=== PATIENT | female | born 1955 | race Caucasian/White ===

== ENCOUNTER 2016-06-29 10:35 | Inpatient (IN) ==
--- NOTE | 2016-06-29 10:50 | Anesthesia Evaluation PreOp ---
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 History: Denies Any Significant HX Other Medical History: Renal (Stones), Diabetes Type II, GERD (Hiatal hernia), Other (Glaucoma) Anesthesia History: Past Anesthesia (Blader sx, Hernia Repair, GB, SALVADOR, Colonoscopy), Problems (PONV) : No Alcohol Use: rarely Drug use: none Medications and Allergies Amoxicillin 875 mg PO BID #20 tablet 01/26/15 [Rx] PredniSONE [Prednisone] 40 mg PO DAILY #10 tablet 01/26/15 [Rx] Hydrocodone/Acetaminophen [Ruth 5-325 Tablet] 1 tab PO Q6H PRN #7 tab 08/03/15 [Rx] Promethazine [Phenergan] 12.5 mg PO Q6HR #7 tablet 08/03/15 [Rx] Allergies Minocycline [From Minocin] Allergy (Verified 01/26/15 21:06) Rash - Meds/Allergy Pre-op Review Medications Reviewed: Yes Allergies Reviewed: Yes Beta Blockers on Current Med List: No Anesthesia Results - Labs Laboratory Tests 06/27/14 04/06/15 04/14/16 09:40 12:36 09:10 WBC Hgb Hct Plt Count Sodium 142 Potassium Chloride 104 Carbon Dioxide 26 BUN 12 Creatinine 0.83 06/22/16 06/22/16 08:45 08:45 WBC 11.2 H Hgb 13.3 Hct 40.4 Plt Count 292 Sodium Potassium 3.4 L Chloride Carbon Dioxide BUN Creatinine - Imaging EKG: image reviewed (SR, IVCD, poss LVH) Anesthesia Exam O2 Sat Height 1.6 m Height 1.6 m Weight 140.614 kg Weight 140.614 kg O2 Sat by Pulse Oximetry 91 Vital Signs Temp Pulse Resp BP Pulse Ox 98.3 F 97 18 127/85 91 L 06/29/16 11:17 06/29/16 11:17 06/29/16 11:17 06/29/16 11:17 06/29/16 11:17 Height: 5'3'' Weight: 310# NPO (# of Hours): > 8 hrs Pain Scale: 0 Pain Scale Used: Numeric (1 - 10) - HEENT Pupil (Motor): Pupils equal, EOMI Mallampati: III Teeth: Normal Oral Opening: Greater than 3 - ADULT SERVICES LIBRARIAN LOC: Oriented ADULT SERVICES LIBRARIAN Motor: Normal RUE, Normal LUE, Normal RLE, Normal LLE, Normal Face ADULT SERVICES LIBRARIAN Sensory: Normal: RUE, LUE, RLE, LLE, Face - Cardiac Rhythm: Regular Murmur: None JVD: No Carotid Bruit: No - Pulmonary Breath Sounds: bilateral Clear Respiratory Effort: Symmetrical Anesthesia Assess/Plan ASA Score: 4 Modified Alana Scale for Level of Consciousness: Cooperative, oriented, and tranquil Anesthetic Plan: General Autologous Blood: Yes Monitoring Plan: Standard Monitors Recovery Plan: PACU
[2016-06-29] MEDS ORDERED: CeFAZolin Pre 3,000 MG/100 ML 3,000 MG/100 ML BAG IVPB ONE (11:31)
[2016-06-29] MEDS ORDERED: *HR* Midazolam HCl 2 MG/2 ML VIAL ONE (11:34)
[2016-06-29] MEDS ORDERED: *HR* FentaNYL (PF) 100 MCG/2 ML VIAL ONE ×2 (11:34→13:04)
[2016-06-29] MEDS ORDERED: Lidocaine -MPF 2% 2 ML VIAL ONE (11:34)
[2016-06-29] MEDS ORDERED: *HR* Propofol 200 MG/20 ML VIAL IVP ONE ×2 (11:34→13:38)
[2016-06-29] MEDS ORDERED: *HR* Rocuronium Bromide 50 MG/5 ML VIAL ONE (11:35)
[2016-06-29] MEDS ORDERED: Lidocaine -MPF 4% 5 ML AMPUL ONE (11:37)
[2016-06-29] MEDS ORDERED: Ringers Solution, Lactated 1,000 ML IVC SCH ×2 (11:45→17:04)
--- NOTE | 2016-06-29 11:46 | History & Physical Report ---
Date of Encounter: 06/29/16 Time of Encounter: 11:45 24 Hour HP Update - Instructions Instructions: If the History and Physical is less than 30 days old and was completed prior to A.M. admission and or procedure and has NOT been updated on calendar day of procedure please complete this update prior to performing procedure. - Update Patient reports changes in Medical Condition: No Changes in assessment/condition: No Changes in Medication: No Preop tests/diagnostics Reviewed: Yes Surgery Remains Indicated: Yes Consent for Planned Operative Procedure(s) Verified: Yes - Pre-Operative Checklist Preoperative Checklist Indicated: Yes Prophylactic Antibiotic Ordered: Yes Home Medications Include Beta Vladimir: No Beta Vladimir Taken Today (Day of Surgery): No Beta Vladimir Taken Yesterday (Day Prior to Surgery): No Is VTE Prophylaxis Indicated?: Yes
[2016-06-29] MEDS ORDERED: Bupivacaine/EPI 1:200k 0.5%PF 30 ML VIAL ONE (11:53)
[2016-06-29] MEDS ORDERED: Lidocaine/EPI 1:100k 1% 20 ML VIAL ONE ×2 (11:54→14:14)
[2016-06-29] MEDS ORDERED: *HR* HYDROmorphone (PF) 1 MG/ML SYRINGE IVP PRN (13:06)
[2016-06-29] MEDS ORDERED: Dexamethasone 4 MG/ML VIAL ONE (13:42)
[2016-06-29] MEDS ORDERED: Ondansetron 4 MG/2 ML VIAL ONE ×2 (13:42→15:36)
[2016-06-29] MEDS ORDERED: Neostigmine Methylsulfate 3 MG/3 ML SYRINGE ONE (13:44)
[2016-06-29] MEDS ORDERED: *HR* HYDROmorphone 2 MG/ML SYRINGE ONE (14:10)
[2016-06-29] MEDS ORDERED: Ondansetron 4 MG/2 ML VIAL IVP PRN ×2 (15:33→17:04)
[2016-06-29] MEDS: *HR* Promethazine 25 MG/ML VIAL IVP PRN ×2 (15:44→16:05)
--- NOTE | 2016-06-29 16:15 | OB/GYN Procedure Note ---
OB-COOK [employer]LED [employer]AT: Procedure - Diagnosis Date of procedure: 06/29/16 Pre-op diagnosis: symptomatic pelvic prolapse, ABBI Post-op diagnosis: other (Third-degree rectocele and minimal cystocele and good apical support) - Procedure Procedure: Rectocele repair, tension-free vaginal taping, cystoscopy Surgeon: Kamari Hatfield Energy Project Manager: Jemma Tejeda Anesthesia Type: General Estimated blood loss (cc): 50 Fluids: crystalloid Procedure Complications: None Specimens collected: None Disposition: PACU Findings: Minimal cystocele good apical support third-degree rectocele, normal bladder Narrative: Patient is a 61-year-old female symptomatic pelvic prolapse who had been seen in the office for these complaints. She states the pressure symptoms are quite disabling make it quite difficult to work. She also plans pressure and incontinence. She previously had hysterectomy by myself in combination with hernia repair with Dr. Smiley and bladder suspension by Dr. Childress. She had since had a recurrent ventral hernia vertical incision with repair and Swift. In office I felt patient had significant cystocele and rectocele and likely needed sacrocolpopexy which was going to be performed because of her prior hernia repair. Saurav going to do tension-free vaginal taping. Then when patient was relaxed she had very minimal cystocele and excellent apical support. She did have a very significant rectocele. At this point I really did not feel that she needed a colpopexy and felt that the risks of bowel or mass injury would be much higher than the possible benefits. It was my belief that she would benefit most from rectocele repair and tension-free vaginal taping. I did break scrub and spoke with her older sister and her daughter Alicia. They agreed with my feelings that if at all possible she would prefer not to have the more extensive surgery and stated she had expressed concern about possible damage to the mesh and also about chronic back pain. At this point decision was made to proceed with rectocele repair and TVT and cystoscopy. Description procedure: Patient was taken up running where general anesthesia was administered she was prepped and draped in usual sterile fashion. Exam under anesthesia revealed third degree rectocele really minimal cystocele and excellent apical support. As above decision was made to proceed with rectocele repair and TVT and cystoscopy and to not perform the sacrocolpopexy. Bladder was drained of clear urine and 3 mL dilute local were injected behind the symphysis pubis in the left and the right. 2 small incisions were then made. The catheter was in place with a Larson guide. The mid urethral portion anterior vaginal wall was noted and injected below the submucosa just behind the symphysis pubis on the left and right. 30 mL was used on each side. Small incision was made in the midline just at the mid urethral portion anterior vaginal wall. Metzenbaum scissors were used to tunnel up under the symphysis pubis on each side. The Larson guide in place the patient was placed in Trendelenburg position and the bladder was maneuvered towards the patient's left. With my left hand in the vagina I passed the TVT needle through the incision along the anterior vaginal wall and hugging very near the symphysis pubis at 100 symphysis and straight up and out through the right lower quadrant incision. In similar fashion and position the patient's bladder towards her right side with left gloved hand in the vagina and reflect the bladder towards her right side. TVT needle was then passed through the suburethral incision. The subscapularis was brought to behind the symphysis pubis and also lower abdominal incision. The needles were grasped with Meghna clamps catheters removed and cystoscopy was performed. There is no hematuria and no evidence of bladder trauma. Both ureters were identified with strong ureteral jets. At this point the catheter was then placed 9 Hegar dilator was used to gently pull the TVT mesh up loosely behind the 9 Hegar dilator sheaths were then removed. The TVT mesh was cut to size and anterior vaginal wall was closed. The skin edges were reapproximated with skin glue. At this point I grasped the posterior vaginal vargas at the introitus with Meghna clamps and injected the posterior vaginal fourchette with 1% lidocaine with epinephrine. A samir-shaped incision was made. I injected along the posterior vaginal 1% lidocaine with epinephrine. I then undermined vaginal mucosa and gently and sharply dissected off the rectovaginal fascia on each side. I extended the posterior vaginal incision up to the vaginal cuff. I then gently continued to grasp the vaginal tissue with Meghna clamps which assisted me in dissecting down to the rectovaginal fascia on each side once the rectovaginal fascia was identified to the large enterocele was noted using 2-0 Vicryl pursestring stitch was taken along the edge of the enterocele. The macula. I reduced the enterocele and snugged down the pursestring stitch over the enterocele was reduced. I then ran the whole posterior vaginal wall with interrupted 2-0 Vicryl reapproximated the left-sided rectovaginal fascia to the right-sided rectovaginal fascia. Once the ring the entire procedure vagina I then transected the extravaginal mucosa. The vaginal mucosa was reapproximated with 3-0 Vicryl along the entire suture vaginal wall. I did use 2-0 Vicryl to build up the posterior fourchette at the introitus and then reapproximated the rest of the skin with 3-0 Vicryl. A 2 inch iodoform packing was placed. All sponge and instrument counts were correct patient was awakened taken to recovery in good condition..
--- NOTE | 2016-06-29 16:21 | Anesthesia Evaluation Post Op ---
Date of Encounter: 06/29/16 Time of Encounter: 16:20 - Vital Signs Vital Signs: Vital Signs/O2 Sat/Glucose, Most Current Temp Pulse Resp BP Pulse Ox 06/29/16 16:15 98.4 F 98 18 135/80 90 L 06/29/16 16:05 104 18 153/73 92 L 06/29/16 15:55 99 18 148/77 91 L 06/29/16 15:45 98.4 F 106 18 141/83 91 L 06/29/16 15:35 107 18 131/76 95 06/29/16 15:25 108 18 152/79 96 06/29/16 15:15 98.7 F 112 18 152/81 99 - Lungs Lungs: Clear Ascult./Percussion - Airway Airway: Non-obstructed - Cardiovascular Regular Rate - Mental Status Mental Status: Alert & Oriented, Answers Appropriately - Pain Pain Scale: 2 - Nausea Vomiting Nausea Vomiting: Not Present - Hydration Hydration: NPO - Discharge PostOp Status: Transfer Patient to floor
[2016-06-29] MEDS ORDERED: Naloxone 0.4 MG/ML INJ IVP PRN (17:04)
[2016-06-29] MEDS ORDERED: VOLTAREN GEL TP PRN (17:04)
[2016-06-29] MEDS ORDERED: traMADol 50 MG TABLET PO PRN (17:04)
[2016-06-29] MEDS ORDERED: *HR* HYDROmorphone (PF) 1 MG/ML SYRINGE ONE (17:12)
[2016-06-29] MEDS: *HR* HYDROmorphone (PF) 1 MG/ML SYRINGE IVP PRN ×2 (17:23→21:50)
[2016-06-29] MEDS: *HR* OxyCODONE/APAP 5/325 TABLET PO PRN (20:41)
[2016-06-29] MEDS: Psyllium 1 PACKET POWD.PACK PO SCH (20:42)
[2016-06-29] MEDS ORDERED: DOVONEX TP SCH (21:00)
[2016-06-30] MEDS: *HR* OxyCODONE/APAP 5/325 TABLET PO PRN ×4 (00:45→12:32)
[2016-06-30] MEDS: Ondansetron ODT 4 MG TAB.RAPDIS SL PRN ×2 (01:00→10:59)
--- NOTE | 2016-06-30 07:39 | Discharge Summary ---
Date of Encounter: 07/04/16 Time of Encounter: 07:40 - Discharge Diagnosis (1) Pelvic prolapse Priority: Primary Status: Acute Comments: Pt doing well s/p rectocele repair and TVT. Will D/c bautista and try voiding trials. Qualifiers: Prolapse type: cystocele Cystocele location: midline Qualified Code(s): N81.11 - Cystocele, midline - Discharge Medications Prescriptions: OxyCODONE/APAP 5/325 [Percocet 5/325 MG] 1 each PO Q4HR PRN #40 tablet PRN Reason: post op pain Ibuprofen [Motrin] 600 mg PO Q6HR PRN #20 tab PRN Reason: post op pain Home Medications: Ascorbic Acid [Vitamin C] 250 mg PO DAILY 06/29/16 [History] Aspirin 81 mg PO DAILY 06/29/16 [History] Bimatoprost [Lumigan] 1 drop OP DAILY 06/29/16 [History] Calcipotriene [Dovonex] 1 appl TP BID 06/29/16 [History] Cholecalciferol (D-3) [Vitamin D] 5,000 unit PO DAILY 06/29/16 [History] Diclofenac Sodium [Voltaren] 1 appl TP QID PRN 06/29/16 [History] Esomeprazole Magnesium [Nexium] 40 mg PO DAILY 06/29/16 [History] Etanercept [Enbrel] 1 ml SQ QMONTH 06/29/16 [History] Famciclovir [Famvir] 1,000 mg PO BID 06/29/16 [History] Fluticasone Propionate Nasal [Flonase] 1 spray NS DAILY 06/29/16 [History] Folic Acid 1 mg PO DAILY 06/29/16 [History] Furosemide [Lasix] 20 mg PO DAILY 06/29/16 [History] Ketoconazole 2% CRM [Nizoral Cream] 1 appl TP DAILY 06/29/16 [History] Liraglutide [Victoza 2-Alexei] 1.8 mg SQ DAILY 06/29/16 [History] Metformin HCl [Metformin HCl ER] 500 mg PO BID 06/29/16 [History] Methotrexate [Otrexup] 20 mg PO QWEEK 06/29/16 [History] Mv-Mn/FA/Vit K/Lycop/Lut/Coq10 [Daily Multivitamin Capsule] 1 each PO DAILY 06/14 [History] [place]-3/Dha/Epa/Fish Oil [Fish Oil 1,000 mg Softgel] 1 each PO DAILY 06/29/16 [ History] Potassium Chloride [K-Tab ER] 20 meq PO DAILY 06/29/16 [History] PredniSONE 5 mg PO DAILY 06/29/16 [History] Rutin/Hesp/Bioflav/C/Herb#196 [Bioflex Tablet] 1 each PO DAILY 06/29/16 [History ] Spironolact/Hydrochlorothiazid [Aldactazide 25-25 Tablet] 1 each PO DAILY [History] Tramadol HCl [Ultram] 50 mg PO BID PRN 06/29/16 [History] Triamcinolone Acet 0.1% CRM [Kenalog] 1 appl TP DAILY 06/29/16 [History] Ibuprofen [Motrin] 600 mg PO Q6HR PRN #20 tab 06/30/16 [Rx] OxyCODONE/APAP 5/325 [Percocet 5/325 MG] 1 each PO Q4HR PRN #40 tablet 06/30/16 [Rx] Allergies/Adverse Reactions: Allergies Minocycline [From Minocin] Allergy (Verified 01/26/15 21:06) Rash Data Procedures and tests throughout hospitalization: Laboratory Tests 06/29/16 06/29/16 11:15 15:16 POC Glucose 116 H 124 H Labs on day of discharge: Labs from last 24 hours 06/29/16 06/29/16 15:16 11:15 POC Glucose 124 H 116 H - Impressions Doing well. + BM. Good pain control. Date of admission: 06/29/16 17:00 Primary care physician: Elijah Hernandez MD - Patient Status Disposition: Home, Self-Care Condition: Good Overall status at discharge: patient is progressing back to baseline - Discharge Instructions Additional Instructions: There are many types of gynecologic surgery. Below, you will find groups of instructions related to caring for yourself after your procedure. there may be instructions that do not apply to you depending on the procedure that you had. Before you go home, your nurse will explain these instructions and let you know any special instructions that you may have. MEDICATIONS: -Continue taking your home medications as prescribed by your doctor prior to surgery. You will be notified of any changes in home medications before leaving the hospital. -A prescription for pain medication may be given to you. Take it as directed. It is important to control your pain during recovery. -Do not stop taking antibiotics if they were prescribed for you. Take them until they are all gone. Antibiotics are sometimes used to prevent infection after surgery. BOWEL MOVEMENTS: -You may not have a bowel movement for a few days after surgery. The first one may be difficult to pass. Do not strain in order to go, and allow yourself plenty of time when going for the first time following your surgery. -To help soften your stool, eat a diet high in fiber. This includes foods such as cereals, whole grain breads and vegetables. You can also take a fiber supplement or stool softeners, which your provider may prescribe for you. DIET: -Your appetite may be decreased following surgery. You will be eating regular food before you are discharged from the hospital. Start out with small amounts of food and increase your meals as you are able to tolerate them without feeling nauseated. -Eat healthy foods to help you heal more quickly and increase your energy. Avoid foods that cause gas, as this will make you feel uncomfortable. -Drink 6-8 glasses of water each day. SMOKING: -Smoking increases your chances of post-surgical complications. It is never too late to quit. Ask your nurse or provider for information to help you quit smoking. ACTIVITY: -Restrict yourself to light activity and increase your activity level slowly, resting frequently. -Be aware your pain medication may cause drowsiness. -It usually takes 4-8 weeks for the body to heal. -You may walk slowly. Limit stair climbing. Do not exercise until the provider tells you it is safe to do so. -No douching, tampons or sex for 6 weeks. This will allow time for healing. You can no longer get after having a hysterectomy but will still need to protect yourself from sexually transmitted diseases. -Lift nothing heavier than 10-15 pounds for 2 weeks. -You can drive in about 2 weeks, unless otherwise instructed by your provider. -You can expect to return to work or school and other normal activities in about 6 weeks or as directed by your provider. -When you get home, you may shower normally. If you have an incision, wash the area with soap and water and dry thoroughly after showering. You may have steri -strips (thin strips of tape used to help hold the incision together while it heals). If these are present, do not remove them. Keep the area of your incision clean and dry. STRESS AND MOOD -A hysterectomy may change the way that you view yourself. These are normal feelings. Talk to your family and health care provider about these feelings. If you feel depressed, seek counseling or talk to your provider about treatment options. It is important in the healing process to have a healthy mind. WHEN TO CALL THE DOCTOR: -If your stitches are swollen, red or have drainage coming from them or if you notice them coming apart. It is normal for your incision to feel numb up to a year. -If you are having chills, fever or a reaction to your medicine. -If your incision is bleeding or you have increased pain in your incision. -If within an hour you have soaked a sanitary pad with vaginal bleeding. -If you are unable to urinate or it has been 4-6 hours since you have urinated. Also, if you have burning with urination or feel like you cant completely empty your bladder; call your provider for further instructions. -If you have a smelly discharge coming from your incision or vagina. -If you have any questions about your surgery or medications. If you have difficulty breathing, chest pain, uncontrolled bleeding or any other emergency, call 911 or report to the nearest emergency department immediately. - Diet and Activity Activity: increase activity as tolerated Diet: advance to your usual diet Hospital Course RESISTOR WINDER Time Attestation: Total time spent providing and/or coordinating discharge services: Exam - Constitutional Vitals: Temp Pulse Resp BP Pulse Ox 98.3 F 70 16 124/75 97 06/30/16 04:55 06/30/16 04:55 06/30/16 04:55 06/30/16 04:55 06/30/16 04:55 General appearance IM: A&O X 3 - Respiratory Respiratory exam: Present: CTAB - Cardiovascular Cardiovascular exam IM: Present: RRR - GI/Abdominal GI/Abdominal exam IM: normal bowel sounds Incision: normal - Extremities Exam Extremities exam IM: Present: full ROM - Neurological Exam Neurological exam: oriented X3 - VTE Documentation of Mechanical Device: Intermittent pneumatic compression device
[2016-06-30] MEDS ORDERED: *HR* Metformin 500 MG TABLET PO SCH ×2 (08:00→17:00)
[2016-06-30 08:39] VITALS: BP 98/63
[2016-06-30] MEDS ORDERED: VICTOZA SQ SCH (09:00)
[2016-06-30] MEDS ORDERED: HCTZ PO SCH (09:00)
[2016-06-30] MEDS ORDERED: predniSONE 5 MG TABLET PO SCH (09:00)
[2016-06-30] MEDS ORDERED: SPIRONOLACTONE PO SCH (09:00)
[2016-06-30] MEDS ORDERED: Ketoconazole 2% CRM 15 GM TUBE TP SCH (09:00)
[2016-06-30] MEDS ORDERED: Fluticasone Propionate Nasal 50 MCG/SPRAY BOTTLE NS SCH (09:00)
[2016-06-30] MEDS ORDERED: LUMIGAN OPTH OP SCH (09:00)
[2016-06-30] MEDS ORDERED: Furosemide 20 MG TABLET PO SCH (09:00)
[2016-06-30] MEDS ORDERED: Ibuprofen 800 MG TABLET PO PRN (09:10)
[2016-06-30] MEDS: Psyllium 1 PACKET POWD.PACK PO SCH (10:01)
== END 2016-06-30 12:45 | disposition home or self-care (01) | DRG 748 ==
LOC: SAMDAY 10:35 → 1NENUOBS 17:00
PROVIDERS: ADMIT Obstetrics & Gynecology; ATTEND Obstetrics & Gynecology

== ENCOUNTER 2017-01-15 13:36 | Inpatient (IN) ==
[2017-01-15] MEDS ORDERED: Ondansetron 4 MG/2 ML VIAL IVP ONE ×3 (14:01→17:12)
[2017-01-15 14:05] LABS: Basophils # 0.1 K/mcL (0.0-0.2); Basophils % 0.4 %; Eosinophils # 0.1 K/mcL (0.0-0.6); Eosinophils % 0.7 %; Hematocrit 40.6 % (35.3-44.9); Immature Granulocytes % 0.7 % (0-4); Lymphocytes # 4.5 K/mcL (0.6-4.6); Lymphocytes % 27.4 %; Mean Corpuscular Volume 96.7 fL (83.0-100.0); Mean Platelet Volume 10.6 fL (9.4-12.4); Monocytes # 1.2 K/mcL (0.0-1.3); Monocytes % 7.1 %; Neutrophils # 10.5 K/mcL (1.6-8.9); Platelet Count 282 K/mcL (140-400); Red Cell Distribution Width 14.6 % (11.5-14.5); Segmented Neutrophils % 63.7 %
[2017-01-15 14:16] LABS: Alanine Aminotransferase 30 Units/L (0-55); Albumin 3.3 g/dL (3.5-5.0); Albumin/Globulin Ratio 0.8 (1.1-2.2); Alkaline Phosphatase 59 Units/L (38-126); Aspartate Amino Transferase 20 Units/L (5-34); BUN/Creatinine Ratio 15 (6-26); Bilirubin,Direct 0.2 mg/dL (0.0-0.5); Bilirubin,Indirect 0.3 mg/dL (0.0-1.2); Bilirubin,Total 0.5 mg/dL (0.2-1.2); Blood Urea Nitrogen 12 mg/dL (7-20); Calcium 9.3 mg/dL (8.6-10.8); Carbon Dioxide 27 mEq/L (19-29); Chloride 101 mEq/L (98-109); Glucose 167 mg/dL (70-99); Lipase 38 Units/L (8-78); Osmolality,Calculated 292 (280-300); Potassium 3.2 mEq/L (3.5-4.5); Sodium 139 mEq/L (136-145); Total Protein 7.3 g/dL (6.0-8.3); eGFR For African Americans > 60 (> 60); eGFR For Non-African Americans > 60 (> 60)
[2017-01-15 14:29] LABS: Bilirubin,Urine Negative (Negative); Blood,Urine Trace (Negative); Clarity,Urine Cloudy (Clear); Color,Urine Yellow (Yellow); Glucose,Urine (UA) Normal (Normal); Ketones,Urine Negative (Negative); Leukocyte Esterase,Urine Trace (Negative); Nitrite,Urine Negative (Negative); PH,Urine 6.5 pH Units (5.0-8.0); Protein,Urine Negative (Neg-Trace); Urobilinogen,Urine Normal (Normal)
[2017-01-15 14:42] LABS: RBC,Urine 0-3 per hpf (0-3); Squamous Epithelial Cell,Urine Few per lpf (None-Few)
[2017-01-15 14:43] LABS: Bacteria,Urine Few per hpf (None-Few); Hyaline Casts,Urine None Seen per lpf (None-Few)
[2017-01-15] MEDS ORDERED: *HR* HYDROmorphone (PF) 1 MG/ML SYRINGE IVP ONE ×2 (15:04→17:03)
[2017-01-15] MEDS ORDERED: Ondansetron 4 MG/2 ML VIAL ONE (15:14)
[2017-01-15] MEDS ORDERED: metroNIDAZOLE 500 MG TABLET PO ONE (17:05)
--- NOTE | 2017-01-15 17:05 | Emergency Department Note ---
Disposition Clinical Impression: Diverticulitis Qualifiers: Diverticulitis site: large intestine Diverticulitis bleeding: without bleeding Diverticulitis complication: without perforation or abscess Qualified Code(s): K57.32 - Diverticulitis of large intestine without perforation or abscess without bleeding Disposition: Admitted As Inpatient Condition: Good Prescriptions: Ondansetron HCl [Zofran] 4 mg PO Q6HR #15 tablet Ciprofloxacin HCl [Cipro] 500 mg PO BID #28 tablet HYDROcodone/Acet 5/325 mg [[place] 5-325 mg] 1 tab PO Q6H PRN #15 tab PRN Reason: Pain metroNIDAZOLE [Flagyl] 500 mg PO BID #28 tablet Forms: Work/School Release, ED Satisfaction Letter General Adult HPI - General Chief complaint: ED Abdominal Pain Stated complaint: LLQ pain Time Seen by Provider: 01/15/17 14:22 Source: patient Limitations: no limitations Nursing Notes Reviewed: Yes Vital Signs Reviewed: Yes - History of Present Illness HPI Narrative: Patient presenting with poor evaluation of left-sided abdominal pain. Patient states she has had symptoms for approximately 2 days. Progressive in nature. Patient describes tenderness as well as sensitivity driving over bumps or walking. Associated nausea. Decreased appetite. Mild objective fever and chills. Patient has a history of diverticulosis but has never had diverticulitis. She has a history of right-sided abdominal pain with swelling of the lymph nodes that is chronic in nature. This is different from previous. She describes to bowel movements with dark stools. Pain Scale: 8 - Related Data Home Medications Medication Instructions Recorded Confirmed Ascorbic Acid [Vitamin C] 250 mg PO DAILY 06/29/16 06/29/16 Aspirin 81 mg PO DAILY 06/29/16 06/29/16 Bimatoprost [Lumigan] 1 drop OP DAILY 06/29/16 06/29/16 Calcipotriene [Dovonex] 1 appl TP BID 06/29/16 06/29/16 Cholecalciferol (D-3) [Vitamin D] 5,000 unit PO DAILY 06/29/16 06/29/16 Diclofenac Sodium [Voltaren] 1 appl TP QID PRN 06/29/16 06/29/16 Esomeprazole Magnesium [Nexium] 40 mg PO DAILY 06/29/16 06/29/16 Etanercept [Enbrel] 1 ml SQ QMONTH 06/29/16 06/29/16 Famciclovir [Famvir] 1,000 mg PO BID 06/29/16 06/29/16 Fluticasone Propionate Nasal 1 spray NS DAILY 06/29/16 06/29/16 [Flonase] Folic Acid 1 mg PO DAILY 06/29/16 06/29/16 Furosemide [Lasix] 20 mg PO DAILY 06/29/16 06/29/16 Ketoconazole 2% CRM [Nizoral Cream] 1 appl TP DAILY 06/29/16 06/29/16 Liraglutide [Victoza 2-Alexei] 1.8 mg SQ DAILY 06/29/16 06/29/16 Metformin HCl [Metformin HCl ER] 500 mg PO BID 06/29/16 06/29/16 Methotrexate [Otrexup] 20 mg PO QWEEK 06/29/16 06/29/16 Mv-Mn/FA/Vit K/Lycop/Lut/Coq10 1 each PO DAILY 06/29/16 06/29/16 [Daily Multivitamin Capsule] [place]-3/Dha/Epa/Fish Oil [Fish Oil 1 each PO DAILY 06/29/16 06/29/16 1,000 mg Softgel] Potassium Chloride [K-Tab ER] 20 meq PO DAILY 06/29/16 06/29/16 [place]/Hesp/Bioflav/C/Herb#196 1 each PO DAILY 06/29/16 06/29/16 [Bioflex Tablet] Spironolact/Hydrochlorothiazid 1 each PO DAILY 06/29/16 06/29/16 [Aldactazide 25-25 Tablet] Tramadol HCl [Ultram] 50 mg PO BID PRN 06/29/16 06/29/16 Triamcinolone Acet 0.1% CRM 1 appl TP DAILY 06/29/16 06/29/16 [Kenalog] predniSONE [PredniSONE] 5 mg PO DAILY 06/29/16 06/29/16 Previous Rx's Medication Instructions Recorded Ibuprofen [Motrin] 600 mg PO Q6HR PRN #20 tab 06/30/16 OxyCODONE/APAP 5/325 [Percocet 1 each PO Q4HR PRN #40 tablet 06/30/16 5/325 MG] Ciprofloxacin HCl [Cipro] 500 mg PO BID #28 tablet 01/15/17 HYDROcodone/Acet 5/325 mg [[place] 1 tab PO Q6H PRN #15 tab 01/15/17 5-325 mg] Ondansetron HCl [Zofran] 4 mg PO Q6HR #15 tablet 01/15/17 metroNIDAZOLE [Flagyl] 500 mg PO BID #28 tablet 01/15/17 Allergies Allergy/AdvReac Type Severity Reaction Status Date / Time Minocycline [From Minocin] Allergy Rash Verified 01/15/17 13:38 Review of Systems: CONSTITUTIONAL: No weight loss, fever, chills, weakness or fatigue. HEENT: Eyes: No visual changes. Ears, Nose, Throat: No hearing loss, difficulty talking or unable to swallow. SKIN: No rash or itching. CARDIOVASCULAR: No chest pain, chest pressure or chest discomfort. No palpitations or edema. RESPIRATORY: No shortness of breath, cough or sputum. GASTROINTESTINAL: Abdominal pain and nausea GENITOURINARY: No burning on urination or hematuria. NEUROLOGICAL: No headache, dizziness, syncope, paralysis, ataxia, numbness or tingling in the extremities. No change in bowel or bladder control. MUSCULOSKELETAL: No muscle pain, back pain, joint pain or stiffness. Past Medical History - Past Medical History Medical history: Reports: diabetes, kidney stones, other Surgical history: Reports: other Psychiatric history: Reports: no psych history - Social History Smoking Status: Never smoker Smokeless Tobacco Status: No Alcohol use: Reports: none Drug use: Reports: none Physical Exam General appearance: NAD, conversant Eyes: anicteric sclerae, moist conjunctivae; PERRL HENT: Atraumatic; oropharynx clear with moist mucous membranes and no mucosal ulcerations Neck: Normal inspection; Trachea midline; FROM, supple Lungs: CTA, with normal respiratory effort and no intercostal retractions CV: RRR, no MRGs Abdomen: Left-sided abdominal tenderness with rebound and guarding Extremities: No peripheral edema or extremity lymphadenopathy Skin: Normal temperature; no rash, ulcers or lesions Psych: Appropriate mood and affect Neuro: alert and oriented to person, place and time - General Limitations: no limitations General appearance: alert, in no apparent distress Course - Reevaluation(s) Reevaluation #1: Patient requesting more pain medication. Pain medication ordered Reevaluation #2: Patient requesting more pain medication. Pain medication ordered Reevaluation #3: Patient was given by mouth challenge including oral Cipro and Flagyl. Patient unable to tolerate as it has made her feel very sick to her stomach. Patient is requesting Phenergan. - Consultations Consultation #1: Discussed with the hospitalist. Patient accepted for admission. Vital Signs Temperature 98.0 F 01/15/17 13:38 Pulse Rate 95 01/15/17 13:38 Respiratory Rate 18 01/15/17 13:38 Blood Pressure 155/98 01/15/17 13:38 O2 Sat by Pulse Oximetry 95 01/15/17 13:38 Temperature 98.0 F 01/15/17 13:38 Pulse Rate 91 01/15/17 17:00 Respiratory Rate 16 01/15/17 17:00 Blood Pressure 128/73 01/15/17 17:00 O2 Sat by Pulse Oximetry 96 01/15/17 17:00 Oxygen Delivery Oxygen Delivery Room Air Medical Decision Making - Lab Data Result diagrams: 01/15/17 13:56 01/15/17 13:56 Lab Results 01/15/17 01/15/17 01/15/17 Range/Units 13:56 13:56 14:20 WBC 16.5 H (4.3-11.1) K/mcL RBC 4.20 (3.82-4.97) M/mcL Hgb 13.0 (11.5-15.4) g/dL Hct 40.6 (35.3-44.9) % MCV 96.7 (83.0-100.0) fL MCH 31.0 (28.0-33.3) pg MCHC 32.0 (31.6-35.5) g/dL RDW 14.6 H (11.5-14.5) % Plt Count 282 (140-400) K/mcL MPV 10.6 (9.4-12.4) fL Immature Gran % 0.7 (0-4) % Seg Neutrophils % 63.7 % Lymphocytes % 27.4 % Monocytes % 7.1 % Eosinophils % 0.7 % Basophils % 0.4 % Neutrophils # 10.5 H (1.6-8.9) K/mcL Lymphocytes # 4.5 (0.6-4.6) K/mcL Monocytes # 1.2 (0.0-1.3) K/mcL Eosinophils # 0.1 (0.0-0.6) K/mcL Basophils # 0.1 (0.0-0.2) K/mcL Sodium 139 (136-145) mEq/L Potassium 3.2 L (3.5-4.5) mEq/L Chloride 101 (98-109) mEq/L Carbon Dioxide 27 (19-29) mEq/L BUN 12 (7-20) mg/dL Creatinine 0.82 (0.57-1.11) mg/dL Est GFR ( Amer) > 60 (> 60) Est GFR (Non-Af Amer) > 60 (> 60) BUN/Creatinine Ratio 15 (6-26) Glucose 167 H (70-99) mg/dL Calculated Osmolality 292 (280-300) Calcium 9.3 (8.6-10.8) mg/dL Total Bilirubin 0.5 (0.2-1.2) mg/dL Direct Bilirubin 0.2 (0.0-0.5) mg/dL Indirect Bilirubin 0.3 (0.0-1.2) mg/dL AST 20 (5-34) Units/L ALT 30 (0-55) Units/L Alkaline Phosphatase 59 (38-126) Units/L Serum Total Protein 7.3 (6.0-8.3) g/dL Albumin 3.3 L (3.5-5.0) g/dL Globulin 4.0 H (2.4-3.5) g/dL Albumin/Globulin Ratio 0.8 L (1.1-2.2) Lipase 38 (8-78) Units/L Urine Color Yellow (Yellow) Urine Clarity Cloudy A (Clear) Urine pH 6.5 (5.0-8.0) pH Units Ur Specific [place] 1.010 (1.010-1.025) Urine Protein Negative (Neg-Trace) mg/dL Urine Glucose (UA) Normal (Normal) mg/dL Urine Ketones Negative (Negative) mg/dL Urine Blood Trace H (Negative) Urine Nitrite Negative (Negative) Urine Bilirubin Negative (Negative) Urine Urobilinogen Normal (Normal) mg/dL Ur Leukocyte Esterase Trace H (Negative) Urine Microscopic RBC 0-3 (0-3) per hpf Urine Microscopic WBC 3-5 H (0-3) per hpf Ur Squamous Epith Cells Few (None-Few) per lpf Urine Bacteria Few (None-Few) per hpf Hyaline Casts None Seen (None-Few) per lpf Ur Culture Indicated? YES A (NO) Attestation Statement - Attestation Attestation: Patient was seen with resident physician. I reviewed the history, physical, assessment and plan, and agree with the findings. I also personally evaluated this patient and had [id number] time with this patient. 61-year-old female presents to the emergency department with a chief complaint of left lower abdominal pain. Patient states she has had pain for the last 2 days. Some nausea without vomiting. No diarrhea. Has a history of diverticulosis in the past but no history of diverticulitis. No chest pain or shortness of breath. On examination vital signs are stable heart and lungs normal. Abdomen is soft there is no guarding or rigidity but there is definitively tenderness in the left lower quadrant left flank area. Extremities are unremarkable. Neurologically intact. ED course labs revealed elevated white blood cell count CT scan demonstrated diverticulitis. Patient was given multiple treatments of pain medication as well as nausea medication. We attempted oral therapy, which increased her nausea, and we were never really able to control her pain. Because of her continued nausea and difficult time managing the patient's pain we opted to admit the patient for further evaluation treatment. The hospital service was notified. He agreed to accept the patient for admission. Hemodynamically she was stable while in the emergency department but still struggling with discomfort despite our attempts at pain management. I agree with the resident physician assessment and plan.
[2017-01-15] MEDS ORDERED: *HR* Promethazine 25 MG/ML VIAL IVP ONE (17:51)
[2017-01-15] MEDS ORDERED: Naloxone 0.4 MG/ML INJ IVP PRN (20:26)
[2017-01-15] MEDS ORDERED: 0.9 % Sodium Chloride 1,000 ML IVC SCH (20:30)
[2017-01-15] MEDS ORDERED: D5% in Water 1,000 ML IVC PRN (20:31)
[2017-01-15] MEDS ORDERED: *HR* Dextrose 50 % in Water (Syg) 50 ML SYRINGE IVP PRN (20:31)
[2017-01-15] MEDS ORDERED: Dextrose Gel 15 GM PO PRN ×2 (20:31)
--- NOTE | 2017-01-15 20:37 | Internal Med History&Physical ---
<Abhilash Jules - Last Filed: 01/15/17 21:15> Date of Encounter: 01/15/17 Time of Encounter: 20:34 Assessment and Plan (1) Diverticulitis Current visit: Yes Status: Acute 61-year-old female with chief complaint of left lower quadrant abdominal pain WBC is 16.5 Afebrile, heart rate less than 100 CT scan shows evidence of acute uncomplicated descending colon diverticulitis Plan: Levaquin and Flagyl Phenergan for nausea Pain control with 0.5 mg Dilaudid every 4 hours GI prophylaxis Nothing by mouth except for medications Qualifiers: Diverticulitis site: large intestine Diverticulitis bleeding: without bleeding Diverticulitis complication: without perforation or abscess Qualified Code(s): K57.32 - Diverticulitis of large intestine without perforation or abscess without bleeding (2) Black stool Current visit: Yes Status: Acute Reports black stools for the last 2-3 weeks. Hemoglobin is baseline at 13 Takes prednisone daily for psoriasis Denies NSAID use. Reports previous EGD showing hiatal hernia but no evidence of ulcers or inflammation. Reports previous colonoscopy which was within normal limits. Plan: Fecal occult blood test Monitor H&H (3) Psoriasis Current visit: Yes Status: Acute History of psoriasis patient is on methotrexate and prednisone. There is no evidence of psoriatic skin changes on exam Plan: Continue home methotrexate and start Solu-Medrol 40 mg IV (4) Hypertension Current visit: Yes Status: Acute hx of HTN controlled Plan: patient is NPO at the moment and will hold home medications BP 107/53 will continue to monitor Qualifiers: Hypertension type: essential hypertension Qualified Code(s): I10 - Essential (primary) hypertension (5) Diabetes mellitus Current visit: Yes Status: Acute hx of DM HGA1c is 6.1 on metformin and victoza plan: NPO Q6H accuchecks Low dose ssi Qualifiers: Diabetes mellitus type: type 2 Diabetes mellitus complication status: with unspecified complications 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 Rojas is a 61 year old female presents with chief complaint of left lower quadrant abdominal pain that started 2 days ago associated with nausea but denies vomiting. Pain is sharp and nonradiating and worsens with movement. Patient denies fevers, chills, sick contacts. States she has a history of IBD and has diarrhea every morning. States 2 weeks ago she started having black tarry stools however this has not brought up to anybody. Reports never has had black stools in the past. Denies bright red blood per rectum. Patient is on prednisone daily for psoriasis. Reports lightheadedness, denies falls or head trauma. Past Med Surg Social Fam HX - Past Medical History Medical history: diabetes, kidney stones, other Psychiatric history: no psych history - Past Surgical History Surgical History: other - Social History Smoking Status: Never smoker Smokeless Tobacco Status: No Alcohol use: none Drug use: none Internal Medicine - H&P: Meds Ascorbic Acid [Vitamin C] 250 mg PO DAILY 06/29/16 [History] Aspirin 81 mg PO DAILY 06/29/16 [History] Bimatoprost [Lumigan] 1 drop OP DAILY 06/29/16 [History] Calcipotriene [Dovonex] 1 appl TP BID 06/29/16 [History] Cholecalciferol (D-3) [Vitamin D] 5,000 unit PO DAILY 06/29/16 [History] Diclofenac Sodium [Voltaren] 1 appl TP QID PRN 06/29/16 [History] Esomeprazole Magnesium [Nexium] 40 mg PO DAILY 06/29/16 [History] Etanercept [Enbrel] 1 ml SQ QMONTH 06/29/16 [History] Famciclovir [Famvir] 1,000 mg PO BID 06/29/16 [History] Fluticasone Propionate Nasal [Flonase] 1 spray NS DAILY 06/29/16 [History] Folic Acid 1 mg PO DAILY 06/29/16 [History] Furosemide [Lasix] 20 mg PO DAILY 06/29/16 [History] Ketoconazole 2% CRM [Nizoral Cream] 1 appl TP DAILY 06/29/16 [History] Liraglutide [Victoza 2-Alexei] 1.8 mg SQ DAILY 06/29/16 [History] Metformin HCl [Metformin HCl ER] 500 mg PO BID 06/29/16 [History] Methotrexate [Otrexup] 20 mg PO QWEEK 06/29/16 [History] Mv-Mn/FA/Vit K/Lycop/Lut/Coq10 [Daily Multivitamin Capsule] 1 each PO DAILY 06/14 [History] [place]-3/Dha/Epa/Fish Oil [Fish Oil 1,000 mg Softgel] 1 each PO DAILY 06/29/16 [ History] Potassium Chloride [K-Tab ER] 20 meq PO DAILY 06/29/16 [History] Rutin/Hesp/Bioflav/C/Herb#196 [Bioflex Tablet] 1 each PO DAILY 06/29/16 [History ] Spironolact/Hydrochlorothiazid [Aldactazide 25-25 Tablet] 1 each PO DAILY [History] Tramadol HCl [Ultram] 50 mg PO BID PRN 06/29/16 [History] Triamcinolone Acet 0.1% CRM [Kenalog] 1 appl TP DAILY 06/29/16 [History] predniSONE [PredniSONE] 5 mg PO DAILY 06/29/16 [History] Ibuprofen [Motrin] 600 mg PO Q6HR PRN #20 tab 06/30/16 [Rx] OxyCODONE/APAP 5/325 [Percocet 5/325 MG] 1 each PO Q4HR PRN #40 tablet 06/30/16 [Rx] Ciprofloxacin HCl [Cipro] 500 mg PO BID #28 tablet 01/15/17 [Rx] HYDROcodone/Acet 5/325 mg [[place] 5-325 mg] 1 tab PO Q6H PRN #15 tab 01/15/17 [Rx ] Ondansetron HCl [Zofran] 4 mg PO Q6HR #15 tablet 01/15/17 [Rx] metroNIDAZOLE [Flagyl] 500 mg PO BID #28 tablet 01/15/17 [Rx] 3 Allergy/AdvReac Type Severity Reaction Status Date / Time Minocycline [From Minocin] Allergy Rash Verified 01/15/17 13:38 All Systems PM: A 10-system review of systems was performed and is negative for pertinent findings except as documented above in the HPI. Review of systems: Constitutional: Denies fever, reports chills HEENT: Denies headache, vision changes, neck pain, sore throat, rhinorrhea Heart: Denies chest pain palpitations Lungs: Denies shortness of breath cough Abdomen: Reports left lower quadrant abdominal pain, nausea denies vomiting. Reports chronic diarrhea, chronic right lower quadrant pain. Back: Denies back pain Kidney: Denies dysuria, hematuria Extremities: Reports lower extremity swelling, denies pain Skin: Denies rash, open wounds or sores Neuro: Denies numbness, and tingling - Constitutional Vitals: Temp Pulse Resp BP Pulse Ox 98.0 F 91 16 107/53 96 01/15/17 13:38 01/15/17 17:00 01/15/17 18:50 01/15/17 18:50 01/15/17 17:00 - Other Additional findings: General: Pleasant, severely obese female that is in mild distress HEENT: Head atraumatic, normocephalic, EOMI, PERRLA, absent Lymphadenopathy, dry mucous membrane Heart: Regular rate and rhythm with no murmur Lungs: Clear to auscultation bilaterally Abdomen: Soft, tenderness to palpation of the left lower quadrant and tenderness to percussion of the left lower quadrant positive bowel sounds in all 4 quadrants, no organomegaly, absent rigidity, absent guarding Skin: Absent rash, absent open wounds or sores, warm and dry Extremities: Mild bilateral edema nonpitting Neuro: Cranial nerves II through XII intact, sensation equal bilaterally, strength upper and lower extremity 5/5, alert oriented 3 Vascular: Pedal and radial pulses 2 out of 4 Internal Med - H&P Results - Labs CBC & Chem 7: 01/15/17 13:56 01/15/17 13:56 <Merrick Morrissey - Last Filed: 01/15/17 23:30> Date of Encounter: 01/15/17 Internal Medicine - H&P: HPI History of present illness: Ms. Rojas is a 61 year old female All Systems PM: A 10-system review of systems was performed and is negative for pertinent findings except as documented above in the HPI. - Constitutional Vitals: Temp Pulse Resp BP Pulse Ox 99.7 F H 79 19 128/72 95 01/15/17 21:29 01/15/17 21:29 01/15/17 21:29 01/15/17 21:29 01/15/17 21:29 Internal Med - H&P Results - Labs CBC & Chem 7: 01/15/17 13:56 01/15/17 13:56 - Attending Attestation I examined this patient and my medical decision-making was reviewed with the Resident Physician, Dr. Abhilash Quarles. I agree with the documented findings, disposition and treatment plan as described except to the extent set forth below. I have independently obtained history and examined the patient and my findings are summarized below: Patient presents to the hospital with moderate to severe left lower quadrant pain associated with nausea for the last 3 days, dry heaving and decreased oral intake. She had subjective fevers at home. She reports passing some dark green stools, no abigail rectal bleeding. Family history was reviewed and found to be noncontributory to this presentation. Negative for colon cancer in both parents. CT of the abdomen and pelvis reveals findings consistent with descending colon diverticulitis, white blood cell count is elevated. Assessment: Acute diverticulitis Plan: IV fluids, IV opiates for pain, Levaquin and Flagyl. Monitor labs daily, replete electrolytes with IV potassium. Check magnesium in the morning. High risk due to IV opiates for pain.
[2017-01-15] MEDS ORDERED: *HR* Methotrexate 2.5 MG TABLET PO SCH (21:15)
[2017-01-15] MEDS: *HR* HYDROmorphone (PF) 1 MG/ML SYRINGE IVP PRN (21:49)
[2017-01-15] MEDS: 0.9 % Sodium Chloride w KCl 20 MEQ/1,000 ML MLS IVC SCH (21:53)
[2017-01-15] MEDS: Levofloxacin 750 MG/150 ML 750 MG/150 ML BAG IVPB SCH (21:53)
[2017-01-15] MEDS: *HR* Promethazine 25 MG/ML VIAL IVP PRN (21:54)
[2017-01-15] MEDS: Acetaminophen 325 MG TABLET PO SCH (22:15)
[2017-01-16] MEDS: Insulin LISPRO 300 UNITS/3 ML VIAL SQ SCH ×4 (00:39→17:11)
[2017-01-16] MEDS: MetroNIDAZOLE 500 MG/100 ML 500 MG/100 ML BAG IVPB SCH ×3 (01:08→17:11)
[2017-01-16] MEDS: *HR* HYDROmorphone (PF) 1 MG/ML SYRINGE IVP PRN ×2 (01:09→06:48)
[2017-01-16 05:19] LABS: Basophils % 0.3 %; Eosinophils # 0.1 K/mcL (0.0-0.6); Eosinophils % 1.1 %; Hematocrit 35.8 % (35.3-44.9); Hemoglobin 11.7 g/dL (11.5-15.4); Immature Granulocytes % 0.6 % (0-4); Lymphocytes # 3.8 K/mcL (0.6-4.6); Lymphocytes % 30.5 %; Mean Corpuscular HGB Conc 32.7 g/dL (31.6-35.5); Mean Corpuscular Volume 97.8 fL (83.0-100.0); Mean Platelet Volume 10.6 fL (9.4-12.4); Monocytes # 1.2 K/mcL (0.0-1.3); Monocytes % 9.9 %; Neutrophils # 7.1 K/mcL (1.6-8.9); Platelet Count 239 K/mcL (140-400); Red Blood Count 3.66 M/mcL (3.82-4.97); Red Cell Distribution Width 14.6 % (11.5-14.5); Segmented Neutrophils % 57.6 %
[2017-01-16 05:32] LABS: BUN/Creatinine Ratio 10 (6-26); Blood Urea Nitrogen 8 mg/dL (7-20); Calcium 8.4 mg/dL (8.6-10.8); Carbon Dioxide 28 mEq/L (19-29); Chloride 104 mEq/L (98-109); Glucose 108 mg/dL (70-99); Magnesium 1.7 mg/dL (1.6-2.6); Osmolality,Calculated 287 (280-300); Potassium 3.6 mEq/L (3.5-4.5); Sodium 139 mEq/L (136-145); eGFR For African Americans > 60 (> 60); eGFR For Non-African Americans > 60 (> 60)
[2017-01-16] MEDS ORDERED: *HR* Heparin 5,000 UNIT/ML VIAL SQ SCH (06:00)
[2017-01-16] MEDS: Acetaminophen 325 MG TABLET PO SCH (06:20)
[2017-01-16] MEDS: Famotidine 20 MG/2 ML VIAL IVP SCH ×2 (06:21→17:11)
[2017-01-16] MEDS: *HR* Heparin 5,000 UNIT/ML VIAL SQ SCH ×3 (06:21→22:11)
[2017-01-16] MEDS: 0.9 % Sodium Chloride w KCl 20 MEQ/1,000 ML MLS IVC SCH ×2 (08:42→17:11)
[2017-01-16] MEDS: MethylPREDNISolone 40 MG/ML VIAL IVP SCH (08:42)
[2017-01-16] MEDS ORDERED: Acetaminophen 325 MG TABLET PO PRN (11:30)
[2017-01-16] MEDS: Furosemide 20 MG TABLET PO SCH (13:29)
--- NOTE | 2017-01-16 14:34 | Internal Med Progress Note ---
Date of Encounter: 01/16/17 Time of Encounter: 14:30 - Assessment and plan (1) Diverticulitis Current Visit: Yes Status: Acute Qualifiers: Diverticulitis site: large intestine Diverticulitis bleeding: without bleeding Diverticulitis complication: without perforation or abscess Qualified Code(s): K57.32 - Diverticulitis of large intestine without perforation or abscess without bleeding (2) Black stool Current Visit: Yes Status: Acute (3) Hypokalemia Current Visit: Yes Status: Acute (4) Diabetes mellitus Current Visit: Yes Status: Acute Qualifiers: Diabetes mellitus type: type 2 Diabetes mellitus complication status: with unspecified complications 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 Patient has been started on IV Levaquin and Cipro. Examination shows she is still quite tender on the left side. IV fluids and antibiotics will be continued though clear liquids can be started. Potassium was low which is supplemented and recheck. - Constitutional Vitals: Temp Pulse Resp BP Pulse Ox 98.7 F 69 18 112/62 96 01/16/17 12:05 01/16/17 12:05 01/16/17 12:05 01/16/17 12:05 01/16/17 12:05 General appearance: Present: cooperative, A&O X 3, pleasant, no acute distress - Head Head exam: Present: atraumatic, normocephalic - Eye Eye exam: Present: PERRL, conjuntiva pink, sclera anicteric Pupils: Present: PERRL - Neck Neck exam general surgery: Present: supple, trachea midline. Absent: lymphadenopathy - Respiratory Respiratory exam: Present: CTAB. Absent: accessory muscle use, rales, rhonchi, wheezes - Cardiovascular Cardiovascular exam: Present: RRR, +S1, +S2. Absent: diastolic murmur, gallop, rubs, systolic murmur - GI/Abdominal GI/Abdominal exam: Present: normal bowel sounds, soft, tenderness, no peritoneal signs. Absent: distended - Extremities Exam Extremities exam: Present: warm, radial pulses palpable and symmetrical. Absent : calf tenderness, cyanotic, pedal edema - Neurological Exam Neurological exam: Present: CN II-XII intact, oriented X3, no focal deficits. Absent: pronater drift, facial droop, speech deficit - Skin Skin exam: Present: dry, intact Internal Medicine: Result - Labs CBC & Chem 7: 01/16/17 04:53 01/16/17 04:53 Labs: Short CBC 01/16/17 Range/Units 04:53 WBC 12.3 H (4.3-11.1) K/mcL Hgb 11.7 (11.5-15.4) g/dL Hct 35.8 (35.3-44.9) % Plt Count 239 (140-400) K/mcL Neutrophils # 7.1 (1.6-8.9) K/mcL BMP 01/16/17 04:53 Sodium 139 Potassium 3.6 Chloride 104 Carbon Dioxide 28 BUN 8 Creatinine 0.79 Glucose 108 H Calcium 8.4 L Consult Discharge Plan - Plan Referrals: Elijah Hernandez MD [Primary Care Provider] -
[2017-01-16] MEDS: *HR* HYDROcodone/Acet 5/325 mg TABLET PO PRN (17:53)
[2017-01-16] MEDS ORDERED: *HR* HYDROmorphone (PF) 1 MG/ML SYRINGE IVP ONE (22:02)
[2017-01-16] MEDS: Levofloxacin 750 MG/150 ML 750 MG/150 ML BAG IVPB SCH (22:07)
[2017-01-16] MEDS: *HR* Promethazine 25 MG/ML VIAL IVP PRN (22:14)
[2017-01-17] MEDS: MetroNIDAZOLE 500 MG/100 ML 500 MG/100 ML BAG IVPB SCH ×4 (00:17→23:15)
[2017-01-17] MEDS: Insulin LISPRO 300 UNITS/3 ML VIAL SQ SCH ×4 (00:24→21:29)
[2017-01-17] MEDS: *HR* HYDROcodone/Acet 5/325 mg TABLET PO PRN ×4 (01:38→21:59)
[2017-01-17] MEDS: 0.9 % Sodium Chloride w KCl 20 MEQ/1,000 ML MLS IVC SCH ×2 (04:33→15:54)
[2017-01-17] MEDS: Famotidine 20 MG/2 ML VIAL IVP SCH (05:42)
[2017-01-17] MEDS: *HR* Heparin 5,000 UNIT/ML VIAL SQ SCH ×3 (05:48→20:24)
[2017-01-17 07:23] LABS: Basophils % 0.5 %; Eosinophils # 0.1 K/mcL (0.0-0.6); Eosinophils % 0.8 %; Hematocrit 34.5 % (35.3-44.9); Hemoglobin 10.8 g/dL (11.5-15.4); Immature Granulocytes % 0.6 % (0-4); Lymphocytes # 3.1 K/mcL (0.6-4.6); Lymphocytes % 35.4 %; Mean Corpuscular HGB Conc 31.3 g/dL (31.6-35.5); Mean Corpuscular Hemoglobin 31.2 pg (28.0-33.3); Mean Corpuscular Volume 99.7 fL (83.0-100.0); Mean Platelet Volume 10.7 fL (9.4-12.4); Monocytes # 0.8 K/mcL (0.0-1.3); Monocytes % 8.9 %; Neutrophils # 4.7 K/mcL (1.6-8.9); Platelet Count 245 K/mcL (140-400); Red Blood Count 3.46 M/mcL (3.82-4.97); Red Cell Distribution Width 14.6 % (11.5-14.5); Segmented Neutrophils % 53.8 %
[2017-01-17 07:34] LABS: Alanine Aminotransferase 31 Units/L (0-55); Albumin/Globulin Ratio 0.8 (1.1-2.2); Alkaline Phosphatase 51 Units/L (38-126); Aspartate Amino Transferase 21 Units/L (5-34); BUN/Creatinine Ratio 9 (6-26); Bilirubin,Total 0.3 mg/dL (0.2-1.2); Blood Urea Nitrogen 7 mg/dL (7-20); Calcium 8.5 mg/dL (8.6-10.8); Carbon Dioxide 28 mEq/L (19-29); Chloride 107 mEq/L (98-109); Globulin 3.4 g/dL (2.4-3.5); Glucose 112 mg/dL (70-99); Osmolality,Calculated 289 (280-300); Potassium 3.7 mEq/L (3.5-4.5); Sodium 140 mEq/L (136-145); eGFR For African Americans > 60 (> 60); eGFR For Non-African Americans > 60 (> 60)
[2017-01-17 07:47] LABS: Albumin 2.6 g/dL (3.5-5.0)
[2017-01-17] MEDS: MethylPREDNISolone 40 MG/ML VIAL IVP SCH (09:35)
[2017-01-17] MEDS: Furosemide 20 MG TABLET PO SCH (09:35)
[2017-01-17] MEDS: *HR* Promethazine 25 MG/ML VIAL IVP PRN (09:35)
--- NOTE | 2017-01-17 16:27 | Internal Med Progress Note ---
Date of Encounter: 01/17/17 Time of Encounter: 16:26 - Assessment and plan (1) Diverticulitis Current Visit: Yes Status: Acute Qualifiers: Diverticulitis site: large intestine Diverticulitis bleeding: without bleeding Diverticulitis complication: without perforation or abscess Qualified Code(s): K57.32 - Diverticulitis of large intestine without perforation or abscess without bleeding (2) Black stool Current Visit: Yes Status: Acute (3) Hypokalemia Current Visit: Yes Status: Acute (4) Diabetes mellitus Current Visit: Yes Status: Acute Qualifiers: Diabetes mellitus type: type 2 Diabetes mellitus complication status: with unspecified complications Diabetes mellitus superintendent marine oil terminal insulin use: without superintendent marine oil terminal use Qualified Code(s): E11.8 - Type 2 diabetes mellitus with unspecified complications (5) Hypertension Current Visit: Yes Status: Acute Qualifiers: Hypertension type: essential hypertension Qualified Code(s): I10 - Essential (primary) hypertension (6) DVT prophylaxis Current Visit: Yes Status: Acute - Subjective Interval history: Ms Elisa Rojas is a 61-year-old female admitted for descending colon diverticulitis as shown on CAT scan with mild leukocytosis. Patient has been started on IV Levaquin and Cipro. Examination shows she is still quite tender on the left side. IV fluids and antibiotics will be continued though clear liquids can be started. Potassium was low which is supplemented and recheck. 01/17 patient was seen today. Tolerating full liquids. WBC count is now normal. However on examination she is a still quite tender in her left lower quadrant. She also has 2-3 loose bowel movement everyday.. IV antibiotics will be continued and will for now keep her on full liquids. Her pain management is escalated upon her request and now she will take [place] 5 every 4 hours when necessary. - Constitutional Vitals: Temp Pulse Resp BP Pulse Ox 97.6 F 58 18 103/63 94 01/17/17 07:00 01/17/17 07:00 01/17/17 07:00 01/17/17 07:00 01/17/17 05:40 General appearance: Present: cooperative, A&O X 3, pleasant, no acute distress - Head Head exam: Present: atraumatic, normocephalic - Eye Eye exam: Present: PERRL, conjuntiva pink, sclera anicteric Pupils: Present: PERRL - Neck Neck exam general surgery: Present: supple, trachea midline. Absent: lymphadenopathy - Respiratory Respiratory exam: Present: CTAB. Absent: accessory muscle use, rales, rhonchi, wheezes - Cardiovascular Cardiovascular exam: Present: RRR, +S1, +S2. Absent: diastolic murmur, gallop, rubs, systolic murmur - GI/Abdominal GI/Abdominal exam: Present: normal bowel sounds, soft, tenderness, no peritoneal signs. Absent: distended - Extremities Exam Extremities exam: Present: warm, radial pulses palpable and symmetrical. Absent : calf tenderness, cyanotic, pedal edema - Neurological Exam Neurological exam: Present: CN II-XII intact, oriented X3, no focal deficits. Absent: pronater drift, facial droop, speech deficit - Skin Skin exam: Present: dry, intact Internal Medicine: Result - Labs CBC & Chem 7: 01/17/17 07:04 01/17/17 07:04 Labs: Short CBC 01/17/17 Range/Units 07:04 WBC 8.8 (4.3-11.1) K/mcL Hgb 10.8 L (11.5-15.4) g/dL Hct 34.5 L (35.3-44.9) % Plt Count 245 (140-400) K/mcL Neutrophils # 4.7 (1.6-8.9) K/mcL BMP 01/17/17 07:04 Sodium 140 Potassium 3.7 Chloride 107 Carbon Dioxide 28 BUN 7 Creatinine 0.76 Glucose 112 H Calcium 8.5 L Liver Function 01/17/17 Range/Units 07:04 Total Bilirubin 0.3 (0.2-1.2) mg/dL AST 21 (5-34) Units/L ALT 31 (0-55) Units/L Alkaline Phosphatase 51 (38-126) Units/L Albumin 2.6 L D (3.5-5.0) g/dL - VTE Documentation of Mechanical Device: Intermittent pneumatic compression device Consult Discharge Plan - Plan Referrals: Elijah Hernandez MD [Primary Care Provider] -
[2017-01-17] MEDS ORDERED: Insulin LISPRO 300 UNITS/3 ML VIAL SQ SCH (17:00)
[2017-01-17] MEDS: Levofloxacin 750 MG/150 ML 750 MG/150 ML BAG IVPB SCH (20:24)
[2017-01-17] MEDS: Latanoprost 2.5 ML BOTTLE BOTH EYES SCH (21:30)
[2017-01-18] MEDS: *HR* HYDROcodone/Acet 5/325 mg TABLET PO PRN ×4 (04:12→21:34)
[2017-01-18] MEDS: 0.9 % Sodium Chloride w KCl 20 MEQ/1,000 ML MLS IVC SCH ×2 (04:12→18:06)
[2017-01-18] MEDS: *HR* Heparin 5,000 UNIT/ML VIAL SQ SCH ×3 (04:12→21:34)
[2017-01-18 05:15] LABS: Basophils % 0.4 %; Eosinophils % 0.4 %; Hematocrit 34.9 % (35.3-44.9); Immature Granulocytes % 0.5 % (0-4); Lymphocytes # 3.6 K/mcL (0.6-4.6); Lymphocytes % 37.6 %; Mean Corpuscular HGB Conc 31.5 g/dL (31.6-35.5); Mean Corpuscular Hemoglobin 31.3 pg (28.0-33.3); Mean Corpuscular Volume 99.1 fL (83.0-100.0); Monocytes # 0.9 K/mcL (0.0-1.3); Monocytes % 9.2 %; Platelet Count 261 K/mcL (140-400); Red Blood Count 3.52 M/mcL (3.82-4.97); Red Cell Distribution Width 14.5 % (11.5-14.5); Segmented Neutrophils % 51.9 %
[2017-01-18 05:33] LABS: Alanine Aminotransferase 27 Units/L (0-55); Albumin 2.7 g/dL (3.5-5.0); Albumin/Globulin Ratio 0.8 (1.1-2.2); Alkaline Phosphatase 50 Units/L (38-126); Aspartate Amino Transferase 20 Units/L (5-34); BUN/Creatinine Ratio 10 (6-26); Bilirubin,Total 0.3 mg/dL (0.2-1.2); Blood Urea Nitrogen 7 mg/dL (7-20); Calcium 8.5 mg/dL (8.6-10.8); Carbon Dioxide 22 mEq/L (19-29); Chloride 112 mEq/L (98-109); Globulin 3.3 g/dL (2.4-3.5); Glucose 106 mg/dL (70-99); Osmolality,Calculated 290 (280-300); Potassium 3.9 mEq/L (3.5-4.5); Sodium 141 mEq/L (136-145); eGFR For African Americans > 60 (> 60); eGFR For Non-African Americans > 60 (> 60)
[2017-01-18] MEDS: Insulin LISPRO 300 UNITS/3 ML VIAL SQ SCH ×4 (08:29→21:40)
[2017-01-18] MEDS: MethylPREDNISolone 40 MG/ML VIAL IVP SCH (08:30)
[2017-01-18] MEDS: Furosemide 20 MG TABLET PO SCH (08:30)
[2017-01-18] MEDS: MetroNIDAZOLE 500 MG/100 ML 500 MG/100 ML BAG IVPB SCH ×2 (08:31→15:11)
--- NOTE | 2017-01-18 16:59 | Internal Med Progress Note ---
Date of Encounter: 01/18/17 Time of Encounter: 16:57 - Assessment and plan (1) Diverticulitis Current Visit: Yes Status: Acute Qualifiers: Diverticulitis site: large intestine Diverticulitis bleeding: without bleeding Diverticulitis complication: without perforation or abscess Qualified Code(s): K57.32 - Diverticulitis of large intestine without perforation or abscess without bleeding (2) Black stool Current Visit: Yes Status: Acute (3) Hypokalemia Current Visit: Yes Status: Acute (4) Diabetes mellitus Current Visit: Yes Status: Acute Qualifiers: Diabetes mellitus type: type 2 Diabetes mellitus complication status: with unspecified complications Diabetes mellitus terminal make up operator insulin use: without terminal make up operator use Qualified Code(s): E11.8 - Type 2 diabetes mellitus with unspecified complications (5) Hypertension Current Visit: Yes Status: Acute Qualifiers: Hypertension type: essential hypertension Qualified Code(s): I10 - Essential (primary) hypertension (6) DVT prophylaxis Current Visit: Yes Status: Acute - Subjective Interval history: Ms Elisa Rojas is a 61-year-old female admitted for descending colon diverticulitis as shown on CAT scan with mild leukocytosis. Patient has been started on IV Levaquin and Cipro. Examination shows she is still quite tender on the left side. IV fluids and antibiotics will be continued though clear liquids can be started. Potassium was low which is supplemented and recheck. 01/17 patient was seen today. Tolerating full liquids. WBC count is now normal. However on examination she is a still quite tender in her left lower quadrant. She also has 2-3 loose bowel movement everyday.. IV antibiotics will be continued and will for now keep her on full liquids. Her pain management is escalated upon her request and now she will take [place] 5 every 4 hours when necessary. 01/18 patient seems to tolerate full diet well. Requesting to be switched to soft diet. She is still using pain medication but claims that pain is improving. Her white count has been normalized. Abdominal examination showed soft belly with left lower quadrant tenderness without any rebound bowel sounds active. Escalated diet may be discharged in 1-2 day period - Constitutional Vitals: Temp Pulse Resp BP Pulse Ox 98.2 F 73 14 124/77 94 01/18/17 15:32 01/18/17 15:32 01/18/17 15:32 01/18/17 15:32 01/18/17 15:32 General appearance: Present: cooperative, A&O X 3, pleasant, no acute distress - Head Head exam: Present: atraumatic, normocephalic - Eye Eye exam: Present: PERRL, conjuntiva pink, sclera anicteric Pupils: Present: PERRL - Neck Neck exam general surgery: Present: supple, trachea midline. Absent: lymphadenopathy - Respiratory Respiratory exam: Present: CTAB. Absent: accessory muscle use, rales, rhonchi, wheezes - Cardiovascular Cardiovascular exam: Present: RRR, +S1, +S2. Absent: diastolic murmur, gallop, rubs, systolic murmur - GI/Abdominal GI/Abdominal exam: Present: normal bowel sounds, soft, tenderness, no peritoneal signs. Absent: distended - Extremities Exam Extremities exam: Present: warm, radial pulses palpable and symmetrical. Absent : calf tenderness, cyanotic, pedal edema - Neurological Exam Neurological exam: Present: CN II-XII intact, oriented X3, no focal deficits. Absent: pronater drift, facial droop, speech deficit - Skin Skin exam: Present: dry, intact Internal Medicine: Result - Labs CBC & Chem 7: 01/18/17 04:06 01/18/17 04:06 Labs: Short CBC 01/18/17 Range/Units 04:06 WBC 9.6 (4.3-11.1) K/mcL Hgb 11.0 L (11.5-15.4) g/dL Hct 34.9 L (35.3-44.9) % Plt Count 261 (140-400) K/mcL Neutrophils # 5.0 (1.6-8.9) K/mcL BMP 01/18/17 04:06 Sodium 141 Potassium 3.9 Chloride 112 H Carbon Dioxide 22 BUN 7 Creatinine 0.70 Glucose 106 H Calcium 8.5 L Liver Function 01/18/17 Range/Units 04:06 Total Bilirubin 0.3 (0.2-1.2) mg/dL AST 20 (5-34) Units/L ALT 27 (0-55) Units/L Alkaline Phosphatase 50 (38-126) Units/L Albumin 2.7 L (3.5-5.0) g/dL - VTE Documentation of Mechanical Device: Intermittent pneumatic compression device Consult Discharge Plan - Plan Referrals: Elijah Hernandez MD [Primary Care Provider] - 01/25/17 1:00 pm
[2017-01-18] MEDS: Latanoprost 2.5 ML BOTTLE BOTH EYES SCH (21:36)
[2017-01-18] MEDS: Levofloxacin 750 MG/150 ML 750 MG/150 ML BAG IVPB SCH (21:41)
[2017-01-19] MEDS: MetroNIDAZOLE 500 MG/100 ML 500 MG/100 ML BAG IVPB SCH ×2 (00:03→08:07)
[2017-01-19 05:18] LABS: Basophils # 0.1 K/mcL (0.0-0.2); Basophils % 0.5 %; Eosinophils # 0.1 K/mcL (0.0-0.6); Eosinophils % 1.1 %; Hematocrit 33.6 % (35.3-44.9); Immature Granulocytes % 0.5 % (0-4); Lymphocytes # 4.2 K/mcL (0.6-4.6); Lymphocytes % 45.2 %; Mean Corpuscular HGB Conc 32.7 g/dL (31.6-35.5); Mean Corpuscular Volume 97.7 fL (83.0-100.0); Mean Platelet Volume 11.1 fL (9.4-12.4); Monocytes # 0.9 K/mcL (0.0-1.3); Monocytes % 9.9 %; Platelet Count 246 K/mcL (140-400); Red Blood Count 3.44 M/mcL (3.82-4.97); Red Cell Distribution Width 14.6 % (11.5-14.5); Segmented Neutrophils % 42.8 %
[2017-01-19 05:29] LABS: Alanine Aminotransferase 33 Units/L (0-55); Albumin 2.6 g/dL (3.5-5.0); Albumin/Globulin Ratio 0.8 (1.1-2.2); Alkaline Phosphatase 55 Units/L (38-126); Aspartate Amino Transferase 30 Units/L (5-34); BUN/Creatinine Ratio 10 (6-26); Blood Urea Nitrogen 7 mg/dL (7-20); Calcium 8.5 mg/dL (8.6-10.8); Carbon Dioxide 25 mEq/L (19-29); Chloride 112 mEq/L (98-109); Globulin 3.1 g/dL (2.4-3.5); Glucose 100 mg/dL (70-99); Osmolality,Calculated 296 (280-300); Potassium 3.8 mEq/L (3.5-4.5); Sodium 144 mEq/L (136-145); Total Protein 5.7 g/dL (6.0-8.3); eGFR For African Americans > 60 (> 60); eGFR For Non-African Americans > 60 (> 60)
[2017-01-19 05:33] LABS: Bilirubin,Total < 0.3 mg/dL (0.2-1.2)
[2017-01-19] MEDS: 0.9 % Sodium Chloride w KCl 20 MEQ/1,000 ML MLS IVC SCH (06:00)
[2017-01-19] MEDS: *HR* Heparin 5,000 UNIT/ML VIAL SQ SCH ×2 (06:01→16:11)
[2017-01-19] MEDS: *HR* HYDROcodone/Acet 5/325 mg TABLET PO PRN ×3 (06:05→16:12)
[2017-01-19] MEDS: Insulin LISPRO 300 UNITS/3 ML VIAL SQ SCH ×2 (07:44→12:16)
[2017-01-19] MEDS: Furosemide 20 MG TABLET PO SCH (08:07)
[2017-01-19] MEDS ORDERED: predniSONE 5 MG TABLET PO SCH (09:00)
[2017-01-19] MEDS ORDERED: Folic Acid 1 MG TABLET PO SCH (09:00)
[2017-01-19 12:08] VITALS: BP 146/79
--- NOTE | 2017-01-19 15:26 | Discharge Summary ---
Date of Encounter: 01/19/17 Time of Encounter: 15:20 - Discharge Diagnosis (1) Diverticulitis Priority: Primary Status: Acute Qualifiers: Diverticulitis site: large intestine Diverticulitis bleeding: without bleeding Diverticulitis complication: without perforation or abscess Qualified Code(s): K57.32 - Diverticulitis of large intestine without perforation or abscess without bleeding (2) Black stool Priority: Secondary Status: Acute (3) Hypokalemia Priority: Secondary Status: Acute (4) Diabetes mellitus Priority: Secondary Status: Acute Qualifiers: Diabetes mellitus type: type 2 Diabetes mellitus complication status: with unspecified complications Diabetes mellitus senior care insulin use: without senior care use Qualified Code(s): E11.8 - Type 2 diabetes mellitus with unspecified complications (5) Hypertension Priority: Secondary Status: Acute Qualifiers: Hypertension type: essential hypertension Qualified Code(s): I10 - Essential (primary) hypertension (6) DVT prophylaxis Priority: Secondary Status: Acute - Discharge Medications Prescriptions: HYDROcodone/Acet 5/325 mg [[place] 5-325 mg] 1 tab PO Q6H PRN #15 tab PRN Reason: Pain levoFLOXacin [Levaquin] 500 mg PO DAILY #9 tablet metroNIDAZOLE [Flagyl] 500 mg PO TID #27 tablet Home Medications: Ascorbic Acid [Vitamin C] 250 mg PO DAILY 06/29/16 [History] Bimatoprost [Lumigan] 1 drop OP DAILY 06/29/16 [History] Cholecalciferol (D-3) [Vitamin D] 5,000 unit PO DAILY 06/29/16 [History] Diclofenac Sodium [Voltaren] 1 appl TP QID PRN 06/29/16 [History] Esomeprazole Magnesium [Nexium] 40 mg PO DAILY 06/29/16 [History] Famciclovir [Famvir] 1,000 mg PO BID PRN 06/29/16 [History] Fluticasone Propionate Nasal [Flonase] 1 spray NS DAILY 06/29/16 [History] Folic Acid 4 mg PO DAILY 06/29/16 [History] Furosemide [Lasix] 20 mg PO DAILY 06/29/16 [History] Liraglutide [Victoza 2-Alexei] 1.8 mg SQ DAILY 06/29/16 [History] Metformin HCl [Metformin HCl ER] 500 mg PO BID 06/29/16 [History] Mv-Mn/FA/Vit K/Lycop/Lut/Coq10 [Daily Multivitamin Capsule] 1 each PO DAILY 06/14 [History] [place]-3/Dha/Epa/Fish Oil [Fish Oil 1,000 mg Softgel] 1 each PO DAILY 06/29/16 [ History] Spironolact/Hydrochlorothiazid [Aldactazide 25-25 Tablet] 1 each PO DAILY [History] predniSONE [PredniSONE] 15 mg PO DAILY 06/29/16 [History] Potassium Chloride [Klor-Con 10] 10 meq PO DAILY 01/16/17 [History] HYDROcodone/Acet 5/325 mg [[place] 5-325 mg] 1 tab PO Q6H PRN #15 tab 01/19/17 [Rx ] levoFLOXacin [Levaquin] 500 mg PO DAILY #9 tablet 01/19/17 [Rx] metroNIDAZOLE [Flagyl] 500 mg PO TID #27 tablet 01/19/17 [Rx] Allergies/Adverse Reactions: 3 Allergy/AdvReac Type Severity Reaction Status Date / Time Minocycline [From Minocin] Allergy Rash Verified 01/15/17 13:38 Procedures/tests Complete & Pending: Procedures Performed prior 72 hours Category Date Time Status CT abd pelvis w iv no oral [CT] Routine Cat Scan 01/19/17 08:33 Completed Date of admission: 01/16/17 01:23 Primary care physician: Elijah Hernandez MD Discharging clinician: Houston Kahn Anticipated date of discharge: 01/19/17 - Patient Status Disposition: Home, Self-Care Condition: Good Overall status at discharge: patient is progressing back to baseline - Discharge Instructions Follow Up With: Elijah Hernandez MD [Primary Care Provider] - 01/25/17 1:00 pm - Diet and Activity Activity: return to work once cleared by your PCP/specialist, resume usual activities as tolerated Diet: advance to your usual diet (Soft diet for 2 weeks), diabetic diet, low fat , low cholesterol, low salt diet Hospital course: Ms Elisa Rojas is a 61-year-old female admitted for descending colon diverticulitis as shown on CAT scan with mild leukocytosis. Patient was started on IV Levaquin and Flagyl. Initially she was in quite a bit of pain but now pain has subsided. Abdominal examination is much better. Repeat CAT scan showed descending and mid transfer: Colitis which is improving and no obstruction abscess perforation. She will continue oral antibiotics as outpatient as she is tolerating soft diet..Potassium was low which is supplemented and recheck. - Time Spent with Patient Total time spent providing and/or coordinating discharge services: Greater than 30 minutes - Constitutional Vitals: Temp Pulse Resp BP Pulse Ox 98.1 F 60 14 146/79 95 01/19/17 11:00 01/19/17 11:00 01/19/17 11:00 01/19/17 11:00 01/19/17 11:00 General appearance: Present: cooperative, A&O X 3, pleasant, no acute distress - Head Head exam: Present: atraumatic, normocephalic - Eye Eye exam: Present: PERRL, conjuntiva pink, sclera anicteric Pupils: Present: PERRL - Neck Neck exam general surgery: Present: supple, trachea midline. Absent: lymphadenopathy - Respiratory Respiratory exam: Present: CTAB. Absent: accessory muscle use, rales, rhonchi, wheezes - Cardiovascular Cardiovascular exam: Present: RRR, +S1, +S2. Absent: diastolic murmur, gallop, rubs, systolic murmur - GI/Abdominal GI/Abdominal exam: Present: normal bowel sounds, soft, no peritoneal signs. Absent: distended, tenderness - Extremities Exam Extremities exam: Present: warm, radial pulses palpable and symmetrical. Absent : calf tenderness, cyanotic, pedal edema - Neurological Exam Neurological exam: Present: CN II-XII intact, oriented X3, no focal deficits. Absent: pronater drift, facial droop, speech deficit - Skin Skin exam: Present: dry, intact - VTE Documentation of Mechanical Device: Intermittent pneumatic compression device
== END 2017-01-19 17:34 | disposition home or self-care (01) | DRG 392 ==
LOC: 2NENU 13:36 → EMEROO 13:36 → 2NENU 20:07
PROVIDERS: ADMIT Internal Medicine; ATTEND Internal Medicine

== ENCOUNTER 2017-04-10 07:06 | Inpatient (IN) ==
--- NOTE | 2017-04-09 21:26 | Discharge Summary ---
<Dory Marks - Last Filed: 04/09/17 21:22> Date of Encounter: 04/09/17 - Discharge Diagnosis (1) Degenerative arthritis of knee, bilateral Priority: Primary Status: Acute Qualifiers: Osteoarthritis type: primary Qualified Code(s): M17.0 - Bilateral primary osteoarthritis of knee (2) Status post total knee replacement Priority: Primary Status: Acute Qualifiers: Laterality: bilateral Qualified Code(s): Z96.653 - Presence of artificial knee joint, bilateral (3) Obesity Priority: Secondary Status: Chronic Qualifiers: Obesity type: due to excess calories Obesity classification: unspecified obesity classification Serious obesity comorbidity presence: with serious comorbidity Qualified Code(s): E66.09 - Other obesity due to excess calories; Z68.43 - Body mass index (BMI) 50-59.9 , adult; Z68.43 - Body mass index (BMI) 50-59.9 , adult; Z68.43 - Body mass index (BMI) 50-59.9 , adult; Z68.43 - Body mass index (BMI) 50-59.9 , adult (4) JADEN on CPAP Priority: Secondary Status: Chronic (5) Psoriasis Priority: Secondary Status: Chronic (6) Hypertension Priority: Secondary Status: Chronic Qualifiers: Hypertension type: essential hypertension (7) Diabetes mellitus Priority: Secondary Status: Chronic Qualifiers: Diabetes mellitus type: type 2 Diabetes mellitus complication status: without complication Diabetes mellitus skilled nursing insulin use: unspecified skilled nursing insulin use status Qualified Code(s): E11.9 - Type 2 diabetes mellitus without complications - Discharge Medications Home Medications: Ascorbic Acid [Vitamin C] 250 mg PO DAILY 06/29/16 [History] Bimatoprost [Lumigan] 1 drop OP HS 06/29/16 [History] Cholecalciferol (D-3) [Vitamin D] 5,000 unit PO DAILY 06/29/16 [History] Diclofenac Sodium [Voltaren] 1 appl TP QID PRN 06/29/16 [History] Esomeprazole Magnesium [Nexium] 40 mg PO DAILY 06/29/16 [History] Famciclovir [Famvir] 1,000 mg PO BID PRN 06/29/16 [History] Fluticasone Propionate Nasal [Flonase] 1 spray NS DAILY 06/29/16 [History] Folic Acid 4 mg PO DAILY 06/29/16 [History] Furosemide [Lasix] 20 mg PO DAILY 06/29/16 [History] Liraglutide [Victoza 2-Alexei] 1.8 mg SQ DAILY 06/29/16 [History] Metformin HCl [Metformin HCl ER] 1,000 mg PO BID 06/29/16 [History] Mv-Mn/FA/Vit K/Lycop/Lut/Coq10 [Daily Multivitamin Capsule] 1 each PO DAILY 06/14 [History] [place]-3/Dha/Epa/Fish Oil [Fish Oil 1,000 mg Softgel] 1 each PO DAILY 06/29/16 [ History] Spironolact/Hydrochlorothiazid [Aldactazide 25-25 Tablet] 1 each PO DAILY [History] predniSONE [PredniSONE] 15 mg PO DAILY 06/29/16 [History] Potassium Chloride [Klor-Con 10] 10 meq PO DAILY 01/16/17 [History] Aspirin Enteric Coated [Aspirin EC] 325 mg PO BID #42 tablet. 04/09/17 [Rx] OxyCODONE Immed Rel [Roxicodone 5 MG] 5 mg PO Q6HR PRN #28 tablet 04/09/17 [Rx] Aspirin [Lo-Dose Aspirin EC] 81 mg PO DAILY 04/10/17 [History] Etanercept [Enbrel] 50 mg SQ TH 04/10/17 [History] Methotrexate [Otrexup] 20 mg PO CANTRELL 04/10/17 [History] Allergies/Adverse Reactions: 3 Allergy/AdvReac Type Severity Reaction Status Date / Time Minocycline [From Minocin] Allergy Rash Verified 04/10/17 08:21 Primary care physician: Elijah Hernandez MD - Patient Status Disposition: Transfer Inpatient Rehab Fac Condition: Good - Discharge Instructions Follow Up With: Kristin Fung PAC [Physician [employer]er [employer]ments] - 04/21/17 9:30 am Porter Potts MD [Partnered Physician] - 05/10/17 5:20 pm Elijah Hernandez MD [Primary Care Provider] - 04/28/17 10:45 am Dave Russo MD [Partnered Physician] - 06/16/17 1:00 pm - Hospital Course Hospital course: Ms. Rojas is a 62 year old female - Time Spent with Patient Total time spent providing and/or coordinating discharge services: <Porter Potts - Last Filed: 04/13/17 08:07> Date of Encounter: 04/13/17 Time of Encounter: 08:06 - Discharge Diagnosis (1) Pelvic prolapse Priority: Secondary Status: Chronic Qualifiers: Prolapse type: cystocele Cystocele location: midline Qualified Code(s): N81.11 - Cystocele, midline (2) Diverticulitis Priority: Secondary Status: Chronic Qualifiers: Diverticulitis site: large intestine Diverticulitis bleeding: without bleeding Diverticulitis complication: without perforation or abscess Qualified Code(s): K57.32 - Diverticulitis of large intestine without perforation or abscess without bleeding (3) Psoriasis Priority: Secondary Status: Chronic (4) Hypertension Priority: Secondary Status: Chronic Qualifiers: Hypertension type: unspecified Qualified Code(s): I10 - Essential (primary ) hypertension (5) Diabetes mellitus Priority: Secondary Status: Chronic Qualifiers: Diabetes mellitus type: type 2 Diabetes mellitus complication status: without complication Diabetes mellitus intermediate teacher insulin use: unspecified skilled nursing insulin use status Qualified Code(s): E11.9 - Type 2 diabetes mellitus without complications (6) DVT prophylaxis Priority: Secondary Status: Chronic (7) Degenerative arthritis of knee, bilateral Priority: Primary Status: Chronic Qualifiers: Osteoarthritis type: primary Qualified Code(s): M17.0 - Bilateral primary osteoarthritis of knee (8) Status post total knee replacement Priority: Primary Status: Acute Qualifiers: Laterality: bilateral Qualified Code(s): Z96.653 - Presence of artificial knee joint, bilateral (9) JADEN on CPAP Priority: Secondary Status: Chronic (10) Psoriasis Priority: Secondary Status: Chronic (11) Obesity Priority: Secondary Status: Chronic Qualifiers: Obesity type: due to excess calories Obesity classification: adult class 3 (BMI >= 40) Serious obesity comorbidity presence: with serious comorbidity Body mass index: BMI 50.0-59.9 Qualified Code(s): E66.01 - Morbid (severe) obesity due to excess calories; Z68.43 - Body mass index (BMI) 50-59.9 , adult; Z68.43 - Body mass index (BMI) 50-59.9 , adult; Z68.43 - Body mass index (BMI) 50-59.9 , adult; Z68.43 - Body mass index (BMI) 50-59.9 , adult (12) Acute blood loss anemia Priority: Primary Status: Acute Primary care physician: Elijah Hernandez MD - Patient Status Functional capacity at discharge: uses cane/walker Overall status at discharge: patient is progressing back to baseline - Hospital Course Hospital course: Ms. Rojas is a 62 year old female status post bilateral total knee replacements. The patient had an uneventful postoperative course. They received antibiotics and physical therapy and were discharged in stable condition. There will follow -up in the office in 2 weeks. - Time Spent with Patient Total time spent providing and/or coordinating discharge services:
--- NOTE | 2017-04-10 07:23 | Anesthesia Evaluation PreOp ---
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 SOLDERER History: Other (Polycystic Ovarys) Other Medical History: Renal (Stones), Diabetes Type II, GERD, Other (Glaucoma, psoriasis) Anesthesia History: No Prior Anesthetic Complications, Past Anesthesia (SALVADOR, Bladder repair, hernia, GB, Colonoscopy) : No Alcohol Use: none Drug use: none Medications and Allergies Ascorbic Acid [Vitamin C] 250 mg PO DAILY 06/29/16 [History] Bimatoprost [Lumigan] 1 drop OP DAILY 06/29/16 [History] Cholecalciferol (D-3) [Vitamin D] 5,000 unit PO DAILY 06/29/16 [History] Diclofenac Sodium [Voltaren] 1 appl TP QID PRN 06/29/16 [History] Esomeprazole Magnesium [Nexium] 40 mg PO DAILY 06/29/16 [History] Famciclovir [Famvir] 1,000 mg PO BID PRN 06/29/16 [History] Fluticasone Propionate Nasal [Flonase] 1 spray NS DAILY 06/29/16 [History] Folic Acid 4 mg PO DAILY 06/29/16 [History] Furosemide [Lasix] 20 mg PO DAILY 06/29/16 [History] Liraglutide [Victoza 2-Alexei] 1.8 mg SQ DAILY 06/29/16 [History] Metformin HCl [Metformin HCl ER] 500 mg PO BID 06/29/16 [History] Mv-Mn/FA/Vit K/Lycop/Lut/Coq10 [Daily Multivitamin Capsule] 1 each PO DAILY 06/14 [History] [place]-3/Dha/Epa/Fish Oil [Fish Oil 1,000 mg Softgel] 1 each PO DAILY 06/29/16 [ History] Spironolact/Hydrochlorothiazid [Aldactazide 25-25 Tablet] 1 each PO DAILY [History] predniSONE [PredniSONE] 15 mg PO DAILY 06/29/16 [History] Potassium Chloride [Klor-Con 10] 10 meq PO DAILY 01/16/17 [History] Aspirin Enteric Coated [Aspirin EC] 325 mg PO BID #42 tablet. 04/09/17 [Rx] OxyCODONE Immed Rel [Roxicodone 5 MG] 5 mg PO Q6HR PRN #28 tablet 04/09/17 [Rx] 3 Allergy/AdvReac Type Severity Reaction Status Date / Time Minocycline [From Minocin] Allergy Rash Verified 04/06/17 08:46 - Meds/Allergy Pre-op Review Medications Reviewed: Yes Allergies Reviewed: Yes Beta Blockers on Current Med List: No Anesthesia Results - Labs Laboratory Tests 04/06/17 04/06/17 04/06/17 09:14 09:14 09:14 WBC 11.4 H Hgb 12.7 Hct 38.7 Plt Count 281 INR 0.9 Sodium 140 Potassium 3.2 L Chloride 102 Carbon Dioxide 27 BUN 17 Creatinine 0.77 - Imaging EKG: image reviewed (SR) Anesthesia Exam O2 Sat Height 1.6 m Height 1.6 m Height 1.6 m Weight 140.614 kg Weight 140.614 kg Weight 140.614 kg O2 Sat by Pulse Oximetry 97 Vital Signs Temp Pulse Resp BP Pulse Ox 98.3 F 97 18 132/79 97 04/10/17 07:57 04/10/17 07:57 04/10/17 07:57 04/10/17 07:57 04/10/17 07:57 - HEENT Pupil (Motor): Pupils equal, EOMI Mallampati: III Teeth: Normal Oral Opening: Greater than 3 - SILVER SOLDERER LOC: Oriented SILVER SOLDERER Motor: Normal RUE, Normal LUE, Normal RLE, Normal LLE, Normal Face SILVER SOLDERER Sensory: Normal: RUE, LUE, RLE, LLE, Face - Cardiac Rhythm: Regular Murmur: None JVD: No Carotid Bruit: No - Pulmonary Breath Sounds: bilateral Clear Respiratory Effort: Symmetrical Anesthesia Assess/Plan ASA Score: 4 Modified Alana Scale for Level of Consciousness: Cooperative, oriented, and tranquil Anesthetic Plan: General, Regional (Bilat Fem. Nerve Blocks) Monitoring Plan: Standard Monitors Recovery Plan: PACU
[2017-04-10] MEDS ORDERED: Ethanol\\Acetic Acid\\Na Ace\\Ben 1,000 ML IRRIG.SOLN IR ONE (07:29)
[2017-04-10] MEDS ORDERED: Lidocaine -MPF 1% 2 ML VIAL ID ONE (07:38)
[2017-04-10] MEDS ORDERED: CeFAZolin Syr 2,000MG/20 ML 2,000 MG/20 ML SYRINGE IVPB ONE (07:38)
[2017-04-10] MEDS ORDERED: Ringers Solution, Lactated 1,000 ML IVC SCH ×2 (07:45→13:19)
[2017-04-10] MEDS ORDERED: Vancomycin 2,000 MG in D5% in Water 500 ML IVPB ONE (07:51)
--- NOTE | 2017-04-10 07:59 | History & Physical Report ---
Date of Encounter: 04/10/17 Time of Encounter: 07:59 24 Hour HP Update - Instructions Instructions: If the History and Physical is less than 30 days old and was completed prior to A.M. admission and or procedure and has NOT been updated on calendar day of procedure please complete this update prior to performing procedure. - Update Patient reports changes in Medical Condition: No Changes in examination, assessment, or condition: No Changes in Medication: No Preop tests/diagnostics Reviewed: Yes Surgery Remains Indicated: Yes Consent for Planned Operative Procedure(s) Verified: Yes - Pre-Operative Checklist Preoperative Checklist Indicated: No Prophylactic Antibiotic Ordered: Yes Is VTE Prophylaxis Indicated?: Yes
[2017-04-10] MEDS ORDERED: Plasma-Lyte A (PH 7.4) 1,000 ML IVC SCH (08:00)
[2017-04-10] MEDS ORDERED: Bupivacaine/Clonidine Syringe 1 EACH SYRINGE ONE (08:20)
[2017-04-10] MEDS ORDERED: ROPIVACAINE HCL/PF 0.5% 30 ML VIAL ONE (08:20)
--- NOTE | 2017-04-10 09:36 | Anesthesia Procedures ---
Date of Encounter: 04/10/17 Time of Encounter: 09:33 Procedures: Anesthesia - Nerve Block Procedure Date: 04/10/17 Time: 09:34 Allergies/Adv Reactions: minocin Pre-op Diagnosis: OA Bilat knee Surgical Procedure: Bilat robotic TKA Checklist: Correct Patient Identifier Blood Thinner: No Monitor Applied: EKG, BP, Pulse Oximetry Supplemental Oxygen via Nasal Cannula (L/min): 3 Sedation: Versed (mg): 5 Sedation: Fentanyl (mcg): 100 Indication: Post Op Analgesia Pre-op Neuro Deficits: No Block Type: Femoral, Other (Ipack) Catheter placed: No Sterile Technique: Yes Ultrasound used: Yes Anatomy identified: Yes Visual spread of Local: Yes Neuro Stimulation: Yes Nerve Stimulator Range: 0.2 - 0.4 mA Blood on Needle Aspiration: No Smooth Injection of Local: Yes Pain with Injection of Local: No Prep: Chlorhexadine Needle: 22 x 50 mm Stimuplex, 21 x 100 mm Stimuplex Local: 0.25% Bupivicaine w/Clonidine 20 mcg/cc (40), Ropivacaine (60) Volume (cc): 40 + 60 Number of Attempts: 1 Complications: None/effective block Vitals: Vital Signs/O2 Sat, Most Current Temp Pulse Resp BP Pulse Ox 98.3 F 82 16 143/88 97 04/10/17 07:57 04/10/17 08:50 04/10/17 08:50 04/10/17 08:50 04/10/17 08:50 Comments: aseptic, sabrina wll no complications, effective
[2017-04-10] MEDS ORDERED: Ondansetron 4 MG/2 ML VIAL IVP PRN (09:37)
[2017-04-10] MEDS ORDERED: *HR* HYDROmorphone (PF) 1 MG/ML SYRINGE IVP PRN (09:37)
[2017-04-10] MEDS ORDERED: *HR* FentaNYL (PF) 100 MCG/2 ML VIAL ONE ×2 (09:52)
[2017-04-10] MEDS ORDERED: *HR* Midazolam HCl 5 MG/5 ML VIAL IVP ONE (09:52)
[2017-04-10] MEDS ORDERED: Lidocaine -MPF 4% 5 ML AMPUL ONE (09:52)
[2017-04-10] MEDS ORDERED: *HR* Propofol 200 MG/20 ML VIAL IVP ONE (09:52)
[2017-04-10] MEDS ORDERED: Dexamethasone 4 MG/ML VIAL ONE (11:30)
[2017-04-10] MEDS ORDERED: Ondansetron 4 MG/2 ML VIAL ONE (11:30)
[2017-04-10] MEDS ORDERED: *HR* HYDROmorphone 2 MG/ML SYRINGE ONE (11:37)
[2017-04-10] MEDS ORDERED: EPHEDrine 50 MG/ML VIAL ONE (11:47)
--- NOTE | 2017-04-10 11:48 | Orthopedic Operative Note ---
Date of procedure: 04/10/17 Pre-op diagnosis: Bilateral knee arthritis Post-op diagnosis: same Procedure: Procedure: Bilateral robotic-assisted Total knee replacement Estimated blood loss: 800 cc Hardware: Metal and polyethylene replacement. Taz Femur: 2s Tibia: 3s PS insert: 13s Patella: 36s Exam Under anesthesia:as calculated by the robot hyperextension left knee 10 degrees, 3 degrees right full flexion bilateral no instability Procedural Notes: Grade 3 arthritic changes all 3 compartments both knees. Operative procedure: The patient was brought to the operating room and placed on the operating room table. After general anesthesia was administered the operative knee was examined. Findings were noted in the exam under anesthesia. The operative extremity was prepped and draped in sterile surgical fashion. The patient received IV antibiotics prior to skin incision. Surgery began with the left knee followed by the right knee, the left knee was closed too subcutaneous tissue before the right knee started. A standard midline incision was made centered over the patella. The incision was made through the skin and subcutaneous tissue. A medial parapatellar tendon approach was performed. Care was taken to preserve tissue along the medial aspect of the patella. And to protect the patella tendon. The deep MCL was released off the medial tibia. The infra patella fat pad was excised. The patella was everted and cut was made at the level of the insertion of the quadriceps and patella tendon. The patella was sized to 36 the guide was seated and the lug holes are drilled. Knee was brought into flexion. Patient noted to have grade 3 arthritic changes all 3 compartments. Steinmann pins were placed in the tibia and the femur for the tibial and femoral arrays respectively. Checkpoints were also placed in the tibia and the femur for calculation purposes. The knee including the femur and the tibial registered. Osteophytes, ACL and PCL were excised at this point. Extension was to about 10 degrees degrees a varus and valgus stresses were assessed, 90 degrees of flexion varus and valgus stresses were assessed and components were adjusted on the computer for the robotic cut positions. Femoral cuts were made first with robotic assistance, these included the anterior cut posterior cuts chamfer cuts. Tibial cut was then performed with robotic assistance as well. Bone fragments were removed, as well as the medial and lateral meniscus. The size 2 femoral guide was seated box cut was made lug holes are drilled. The size 3 tibial tray was seated and prepared with the fin cutter. Trial reduction with the 13 PS Fabiana revealed extension of hyperextension 1 degree bilateral and full flexion. No varus valgus instability. Trial reduction revealed excellent patella tracking. All trial components were removed all bony surfaces were irrigated. Tibias demented followed by the femur PS Fabiana size 13 was seated and secured patella. Patient had similar findings for motion and stability. The knee was closed by the PA. The knee was then irrigated out with 2 L of pulse irrigation. The extensor mechanism was closed with #2 FiberWire suture and #2 PDS suture. The subcutaneous tissue was then irrigated and closed deep with #1 PDS suture superficially with 0 PDS suture and skin was closed with zip tie The patient was then placed in a sterile dressing and a postoperative brace extubated and transferred to recovery room in stable condition. Anesthesia: GETA Surgeon: Porter Potts Condition: stable Disposition: PACU
--- NOTE | 2017-04-10 12:53 | Anesthesia Evaluation Post Op ---
Date of Encounter: 04/10/17 Time of Encounter: 12:53 Notes: 04/10/17 12:53 Patient is stable postoperatively and has adequately recovered from anesthesia. Patient has a patent airway and stable respiratory function including respiratory rate and oxygen saturation. Patient has a stable heart rate, blood pressure and adequate hydration. Patient's mental status is acceptable. Patient's temperature is appropriate. Pain and nausea are adequately controlled. Last vital signs were reviewed. - Discharge PostOp Status: Transfer Patient to floor
[2017-04-10 12:54] LABS: Hematocrit 32.8 % (35.3-44.9); Hemoglobin 10.8 g/dL (11.5-15.4)
[2017-04-10] MEDS ORDERED: Sennosides 8.6 MG TABLET PO PRN (13:19)
[2017-04-10] MEDS ORDERED: *HR* Dextrose 50 % in Water (Syg) 50 ML SYRINGE IVP PRN (13:19)
[2017-04-10] MEDS ORDERED: Naloxone 0.4 MG/ML INJ IVP PRN (13:19)
[2017-04-10] MEDS ORDERED: MOM Conc 10 ML UD.LIQ PO PRN (13:19)
[2017-04-10] MEDS ORDERED: Temazepam 15 MG CAPSULE PO PRN (13:19)
[2017-04-10] MEDS ORDERED: NON-FORMULARY MEDICATION 1 EACH EACH (Spironolact/Hydrochlorothiazid [Aldactazide 25-25 Ta PO SCH (13:19)
[2017-04-10] MEDS ORDERED: D5% in Water 1,000 ML IVC PRN (13:19)
[2017-04-10] MEDS ORDERED: FAMCICLOVIR PO PRN (13:19)
[2017-04-10] MEDS ORDERED: *HR* OxyCODONE Immed Rel 5 MG TABLET PO PRN (13:19)
[2017-04-10] MEDS ORDERED: Dextrose Gel 15 GM PO PRN ×2 (13:19)
[2017-04-10] MEDS: Ondansetron 4 MG/2 ML VIAL IVP PRN (14:09)
[2017-04-10] MEDS: [UNRECOGNIZED DRUG - OTHER] PO SCH (14:55)
[2017-04-10] MEDS: EPA PO SCH (14:55)
[2017-04-10] MEDS: [UNRECOGNIZED DRUG - OTHER] SQ SCH (14:55)
[2017-04-10] MEDS: LIRAGLUTIDE 1.8 MG SQ SCH (14:55)
[2017-04-10] MEDS: FISH OIL PO SCH (14:55)
[2017-04-10] MEDS: DHA PO SCH (14:55)
[2017-04-10] MEDS: OMEGA PO SCH (14:55)
[2017-04-10] MEDS: hydroCHLOROthiazide 25 MG TABLET PO SCH (14:56)
[2017-04-10] MEDS: Spironolactone 25 MG TABLET PO SCH (14:56)
[2017-04-10] MEDS ORDERED: *HR* Promethazine 25 MG/ML VIAL IVP ONE (15:22)
[2017-04-10] MEDS: CeFAZolin Syr 3,000MG/30 ML 3,000 MG/30 ML SYRINGE IVPB SCH (15:36)
[2017-04-10] MEDS: Ascorbic Acid 500 MG TABLET PO SCH (15:38)
[2017-04-10] MEDS: Furosemide 20 MG TABLET PO SCH (15:38)
[2017-04-10] MEDS: Multivit/Ca/Min/Fe/FA 1 TAB TABLET PO SCH (15:38)
[2017-04-10] MEDS: *HR* Metformin 500 MG TABLET PO SCH ×2 (15:38→20:32)
[2017-04-10] MEDS: Aspirin Enteric Coated 81 MG Tablet PO SCH (15:38)
[2017-04-10] MEDS: Folic Acid 1 MG TABLET PO SCH (15:39)
[2017-04-10] MEDS: Cholecalciferol (D-3) 1,000 UNIT TABLET PO SCH (15:39)
[2017-04-10] MEDS: Fluticasone Propionate Nasal 50 MCG/SPRAY BOTTLE NS SCH (15:39)
[2017-04-10] MEDS: Insulin LISPRO 300 UNITS/3 ML VIAL SQ SCH ×3 (15:39→22:18)
[2017-04-10] MEDS ORDERED: *HR* Enoxaparin 30 MG/0.3 ML SYRINGE SQ SCH (18:00)
[2017-04-10] MEDS: *HR* OxyCODONE Immed Rel 5 MG TABLET PO PRN (18:56)
[2017-04-10] MEDS: *HR* Enoxaparin 30 MG/0.3 ML SYRINGE SQ SCH (18:56)
[2017-04-10] MEDS: Acetaminophen 325 MG TABLET PO PRN (20:32)
[2017-04-10] MEDS: Latanoprost 2.5 ML BOTTLE BOTH EYES SCH (20:54)
[2017-04-10] MEDS: *HR* HYDROmorphone (PF) 1 MG/ML SYRINGE IVP PRN (22:32)
[2017-04-11] MEDS: CeFAZolin Syr 3,000MG/30 ML 3,000 MG/30 ML SYRINGE IVPB SCH (00:34)
[2017-04-11] MEDS: *HR* HYDROmorphone (PF) 1 MG/ML SYRINGE IVP PRN ×9 (00:40→21:55)
[2017-04-11] MEDS: Ondansetron 4 MG/2 ML VIAL IVP PRN ×2 (00:57→06:53)
[2017-04-11] MEDS: *HR* OxyCODONE Immed Rel 5 MG TABLET PO PRN ×4 (02:52→20:46)
[2017-04-11] MEDS: *HR* Enoxaparin 30 MG/0.3 ML SYRINGE SQ SCH ×2 (04:43→16:15)
[2017-04-11 05:48] LABS: Hematocrit 27.2 % (35.3-44.9)
[2017-04-11 06:02] LABS: BUN/Creatinine Ratio 15 (6-26); Blood Urea Nitrogen 12 mg/dL (7-20); Carbon Dioxide 27 mEq/L (19-29); Chloride 99 mEq/L (98-109); Glucose 139 mg/dL (70-99); Osmolality,Calculated 282 (280-300); Potassium 3.4 mEq/L (3.5-4.5); Sodium 135 mEq/L (136-145); eGFR For African Americans > 60 (> 60); eGFR For Non-African Americans > 60 (> 60)
--- NOTE | 2017-04-11 06:30 | Orthopedics Progress Note ---
Date of Encounter: 04/11/17 Time of Encounter: 06:29 - Assessment and Plan (1) Pelvic prolapse Current Visit: No Status: Chronic Qualifiers: Prolapse type: cystocele Cystocele location: midline Qualified Code(s): N81.11 - Cystocele, midline (2) Diverticulitis Current Visit: No Status: Chronic Qualifiers: Diverticulitis site: large intestine Diverticulitis bleeding: without bleeding Diverticulitis complication: without perforation or abscess Qualified Code(s): K57.32 - Diverticulitis of large intestine without perforation or abscess without bleeding (3) Psoriasis Current Visit: No Status: Chronic (4) Hypertension Current Visit: No Status: Chronic Qualifiers: Hypertension type: unspecified Qualified Code(s): I10 - Essential (primary ) hypertension (5) Diabetes mellitus Current Visit: No Status: Chronic Qualifiers: Diabetes mellitus type: type 2 Diabetes mellitus complication status: without complication Diabetes mellitus intermediate project manager insulin use: unspecified intermediate project manager insulin use status Qualified Code(s): E11.9 - Type 2 diabetes mellitus without complications (6) DVT prophylaxis Current Visit: No Status: Chronic (7) Degenerative arthritis of knee, bilateral Current Visit: No Status: Chronic Qualifiers: Osteoarthritis type: primary Qualified Code(s): M17.0 - Bilateral primary osteoarthritis of knee (8) Status post total knee replacement Current Visit: No Status: Acute Qualifiers: Laterality: bilateral Qualified Code(s): Z96.653 - Presence of artificial knee joint, bilateral (9) JADEN on CPAP Current Visit: No Status: Chronic (10) Psoriasis Current Visit: No Status: Chronic (11) Obesity Current Visit: No Status: Chronic Qualifiers: Obesity type: due to excess calories Obesity classification: adult class 3 (BMI >= 40) Serious obesity comorbidity presence: with serious comorbidity Body mass index: BMI 50.0-59.9 Qualified Code(s): E66.01 - Morbid (severe) obesity due to excess calories; Z68.43 - Body mass index (BMI) 50-59.9 , adult; Z68.43 - Body mass index (BMI) 50-59.9 , adult; Z68.43 - Body mass index (BMI) 50-59.9 , adult; Z68.43 - Body mass index (BMI) 50-59.9 , adult (12) Acute blood loss anemia Current Visit: Yes Status: Acute Subjective Interval history: Patient was seen this morning doing well without complaints. Afebrile vital signs stable. Operative extremity: Neurovascularly intact Dressing clean dry and intact Calves nontender Assessment and plan: Continue with postoperative care Hemoglobin 9.0 transfuse 2 units Objective Vital signs: Vital Signs Temp Pulse Resp BP Pulse Ox 04/11/17 04:34 97.9 F 90 18 107/57 98 04/11/17 02:00 96 04/10/17 23:28 98.2 F 90 18 102/69 96 04/10/17 19:05 98.3 F 85 18 111/73 99 04/10/17 16:22 97.9 F 89 17 107/70 95 04/10/17 15:19 97.9 F 92 18 105/75 96 04/10/17 14:10 97.8 F 97 18 100/67 94 04/10/17 13:48 97.9 F 89 16 116/80 94 04/10/17 13:15 97.9 F 95 15 117/81 95 04/10/17 12:58 97.4 F L 99 18 149/72 95 04/10/17 12:48 98.2 F 98 14 138/82 93 04/10/17 12:38 95 14 132/76 92 04/10/17 12:28 95 12 121/87 93 04/10/17 12:18 98.1 F 108 18 142/85 95 04/10/17 08:50 82 16 143/88 97 04/10/17 08:30 82 16 159/87 97 04/10/17 07:57 98.3 F 97 18 132/79 97 Intake and Output 04/10/17 04/10/17 04/11/17 15:59 23:59 07:59 Intake Total 30 / 30 900 / 900 Output Total 1600 / 1600 350 / 350 300 / 300 Balance -1570 / -1570 550 / 550 -300 / -300 Intake: IV Fluids 30 / 30 Ancef Syringe 3,000 MG/30 ML 3, 30 / 30 000 mg In 30 ml @ 200 mls/hr IVPB Q8HR [facility] Rx#:[id number] Oral 900 / 900 Output: Urine 350 / 350 300 / 300 Estimated Blood Loss 1600 / 1600 Other: Stool Size Large Small Stool Consistency soft soft Stool Color Brown Brown # Bowel Movements 1 Blood Glucose* 145 - Labs CBC & BMP: 04/11/17 05:37 04/11/17 05:37 Labs: Abnormal lab results Hgb 9.0 g/dL (11.5-15.4) L D 04/11/17 05:37 Hct 27.2 % (35.3-44.9) L 04/11/17 05:37 Sodium 135 mEq/L (136-145) L 04/11/17 05:37 Potassium 3.4 mEq/L (3.5-4.5) L 04/11/17 05:37 Glucose 139 mg/dL (70-99) H 04/11/17 05:37 POC Glucose 145 (58-89) H 04/10/17 20:21 Calcium 8.0 mg/dL (8.6-10.8) L 04/11/17 05:37 - VTE Documentation of Mechanical Device: Venous foot pump, device Consult Discharge Plan - Plan Referrals: Elijah Hernandez MD [Primary Care Provider] -
[2017-04-11] MEDS: Acetaminophen 325 MG TABLET PO PRN ×3 (06:58→18:48)
[2017-04-11] MEDS: Insulin LISPRO 300 UNITS/3 ML VIAL SQ SCH ×4 (08:18→21:55)
[2017-04-11] MEDS: Folic Acid 1 MG TABLET PO SCH (10:36)
[2017-04-11] MEDS: Cholecalciferol (D-3) 1,000 UNIT TABLET PO SCH (10:36)
[2017-04-11] MEDS: Multivit/Ca/Min/Fe/FA 1 TAB TABLET PO SCH (10:37)
[2017-04-11] MEDS: Spironolactone 25 MG TABLET PO SCH (10:37)
[2017-04-11] MEDS: Ascorbic Acid 500 MG TABLET PO SCH (10:37)
[2017-04-11] MEDS: hydroCHLOROthiazide 25 MG TABLET PO SCH (10:37)
[2017-04-11] MEDS: Aspirin Enteric Coated 81 MG Tablet PO SCH (10:37)
[2017-04-11] MEDS: *HR* Metformin 500 MG TABLET PO SCH ×2 (10:37→20:46)
[2017-04-11] MEDS: predniSONE 10 MG TABLET PO SCH (10:37)
[2017-04-11] MEDS: Furosemide 20 MG TABLET PO SCH (10:38)
[2017-04-11] MEDS: [UNRECOGNIZED DRUG - OTHER] SQ SCH (10:38)
[2017-04-11] MEDS: LIRAGLUTIDE 1.8 MG SQ SCH (10:38)
[2017-04-11] MEDS: Fluticasone Propionate Nasal 50 MCG/SPRAY BOTTLE NS SCH (10:38)
[2017-04-11] MEDS: EPA PO SCH (10:39)
[2017-04-11] MEDS: DHA PO SCH (10:39)
[2017-04-11] MEDS: OMEGA PO SCH (10:39)
[2017-04-11] MEDS: FISH OIL PO SCH (10:39)
[2017-04-11] MEDS: [UNRECOGNIZED DRUG - OTHER] PO SCH (10:39)
--- NOTE | 2017-04-11 11:28 | Physician Discharge Referral ---
ExtendedCare Referral Info Transfer To: F Provider in Charge: Provider in Charge after Transfer: PCP Institutional Level of Care: Skilled - Diagnosis (1) Degenerative arthritis of knee, bilateral Priority: Primary Status: Chronic (2) Status post total knee replacement Priority: Primary Status: Acute (3) Obesity Priority: Secondary Status: Chronic (4) JADEN on CPAP Priority: Secondary Status: Chronic (5) Psoriasis Priority: Secondary Status: Chronic (6) Hypertension Priority: Secondary Status: Chronic (7) Diabetes mellitus Priority: Secondary Status: Chronic (8) Acute blood loss as cause of postoperative anemia Priority: Primary Status: Acute Expected Duration of Placement: < 30 days Prognosis: Good Aware of Diagnosis: Patient Aware of Prognosis: Patient - Transfer Medications Home Medications: Ascorbic Acid [Vitamin C] 250 mg PO DAILY 06/29/16 [History] Bimatoprost [Lumigan] 1 drop OP HS 06/29/16 [History] Cholecalciferol (D-3) [Vitamin D] 5,000 unit PO DAILY 06/29/16 [History] Diclofenac Sodium [Voltaren] 1 appl TP QID PRN 06/29/16 [History] Esomeprazole Magnesium [Nexium] 40 mg PO DAILY 06/29/16 [History] Famciclovir [Famvir] 1,000 mg PO BID PRN 06/29/16 [History] Fluticasone Propionate Nasal [Flonase] 1 spray NS DAILY 06/29/16 [History] Folic Acid 4 mg PO DAILY 06/29/16 [History] Furosemide [Lasix] 20 mg PO DAILY 06/29/16 [History] Liraglutide [Victoza 2-Alexei] 1.8 mg SQ DAILY 06/29/16 [History] Metformin HCl [Metformin HCl ER] 500 mg PO BID 06/29/16 [History] Mv-Mn/FA/Vit K/Lycop/Lut/Coq10 [Daily Multivitamin Capsule] 1 each PO DAILY 06/14 [History] Howard-3/Dha/Epa/Fish Oil [Fish Oil 1,000 mg Softgel] 1 each PO DAILY 06/29/16 [ History] Spironolact/Hydrochlorothiazid [Aldactazide 25-25 Tablet] 1 each PO DAILY [History] predniSONE [PredniSONE] 15 mg PO DAILY 06/29/16 [History] Potassium Chloride [Klor-Con 10] 10 meq PO DAILY 01/16/17 [History] Aspirin Enteric Coated [Aspirin EC] 325 mg PO BID #42 tablet. 04/09/17 [Rx] OxyCODONE Immed Rel [Roxicodone 5 MG] 5 mg PO Q6HR PRN #28 tablet 04/09/17 [Rx] Aspirin [Lo-Dose Aspirin EC] 81 mg PO DAILY 04/10/17 [History] Etanercept [Enbrel] 50 mg SQ TH 04/10/17 [History] Methotrexate [Otrexup] 20 mg PO CANTRELL 04/10/17 [History] Allergies/Adverse Reactions: 3 Allergy/AdvReac Type Severity Reaction Status Date / Time Minocycline [From Minocin] Allergy Rash Verified 04/10/17 08:21 - Respiratory Orders None Smoking Cessation: Smoking cessation has been advised. For more information, call the [place] Tobacco Quit Line at 7-847-BJUF-NOW. - Ancillary Orders May use pressure relief devices daily prn, May go on [facility] w/family/respon constitution party w /meds at nurse discretion PRN - Mobility Orders Chair, Ambulate - Rehabiliation Orders Rehab Potential: Good Rehab Orders: ROM Exercises, Evaluation for Physical Therapy, Evaluation for Occupational Therapy - Treatments Skin tear care topically daily PRN per policy List/Other: Bilateral TKR - Robotic 04/11 Opsite dressings, leave intact until first post-operative visit. If dressing becomes >50% saturated, contact office, remove dressing and place appropriate dressing in its place. Do not allow for dressing to get wet. [place] in place, plan to remove at post-operative day #14-16. Total Joint Precautions x 6 weeks Apply cold therapy wrap 3-6x/day for 20 minutes at a time. Encourage ambulation throughout the day Use Incentive spirometer 10x/hour. Elevate affected extremity above heart as tolerated. Brace: Wear knee immobilizer at night x 2 weeks. CERTIFICATION: I certify that the transfer of the above named patient to an Extended Care Facility is necessary for the continuing treatment of the diagnosis listed. The above information is true and accurate reflection of patient's current condition. Confidential - Redisclosure prohibited without a patient's written consent.
[2017-04-11] MEDS: 0.9 % Sodium Chloride 250 ML IVC SCH (12:08)
[2017-04-11] MEDS: BuPROPion XL (24 HR) 150 MG TABLET PO SCH (15:13)
--- NOTE | 2017-04-11 15:52 | Event Note ---
Date of Encounter: 04/11/17 Time of Encounter: 13:00 Bilateral TKR - Robotic POD#.1 Labs: H/H drop - 2 units given today Patient seen at bedside. Pain control: adequate Participating in PT. All questions and concerns addressed. Educated on use of incentive spirometer, ambulation, and hydration. Patient educated on post-operative restrictions and care. Addressed: 04/11 - Bladder scan performed, straight cathed, will continue to monitor, repeat bladder scan this afternoon if unable to void on her own. D/C plan: ECF, continuity placed
[2017-04-11 20:28] LABS: Bilirubin,Urine Negative (Negative); Blood,Urine Negative (Negative); Clarity,Urine Clear (Clear); Color,Urine Yellow (Yellow); Glucose,Urine (UA) Normal (Normal); Ketones,Urine Negative (Negative); Leukocyte Esterase,Urine Negative (Negative); Nitrite,Urine Negative (Negative); Protein,Urine Negative (Neg-Trace); Urobilinogen,Urine Normal (Normal)
[2017-04-11] MEDS: Latanoprost 2.5 ML BOTTLE BOTH EYES SCH (20:48)
[2017-04-12] MEDS: *HR* HYDROmorphone (PF) 1 MG/ML SYRINGE IVP PRN ×7 (00:03→21:17)
[2017-04-12] MEDS: *HR* OxyCODONE Immed Rel 5 MG TABLET PO PRN ×5 (00:49→18:56)
[2017-04-12] MEDS: 0.9 % Sodium Chloride 250 ML IVC SCH (00:50)
[2017-04-12 05:43] LABS: Hematocrit 29.9 % (35.3-44.9); Hemoglobin 9.9 g/dL (11.5-15.4)
[2017-04-12 05:56] LABS: BUN/Creatinine Ratio 12 (6-26); Blood Urea Nitrogen 8 mg/dL (7-20); Calcium 8.4 mg/dL (8.6-10.8); Carbon Dioxide 31 mEq/L (19-29); Chloride 97 mEq/L (98-109); Glucose 122 mg/dL (70-99); Osmolality,Calculated 280 (280-300); Sodium 135 mEq/L (136-145); eGFR For African Americans > 60 (> 60); eGFR For Non-African Americans > 60 (> 60)
[2017-04-12] MEDS: *HR* Enoxaparin 30 MG/0.3 ML SYRINGE SQ SCH ×2 (06:30→16:40)
--- NOTE | 2017-04-12 08:03 | Orthopedics Progress Note ---
Date of Encounter: 04/12/17 Time of Encounter: 08:02 - Assessment and Plan (1) Pelvic prolapse Current Visit: No Status: Chronic Qualifiers: Prolapse type: cystocele Cystocele location: midline Qualified Code(s): N81.11 - Cystocele, midline (2) Diverticulitis Current Visit: No Status: Chronic Qualifiers: Diverticulitis site: large intestine Diverticulitis bleeding: without bleeding Diverticulitis complication: without perforation or abscess Qualified Code(s): K57.32 - Diverticulitis of large intestine without perforation or abscess without bleeding (3) Psoriasis Current Visit: No Status: Chronic (4) Hypertension Current Visit: No Status: Chronic Qualifiers: Hypertension type: unspecified Qualified Code(s): I10 - Essential (primary ) hypertension (5) Diabetes mellitus Current Visit: No Status: Chronic Qualifiers: Diabetes mellitus type: type 2 Diabetes mellitus complication status: without complication Diabetes mellitus intermodal customer service insulin use: unspecified mcc insulin use status Qualified Code(s): E11.9 - Type 2 diabetes mellitus without complications (6) DVT prophylaxis Current Visit: No Status: Chronic (7) Degenerative arthritis of knee, bilateral Current Visit: No Status: Chronic Qualifiers: Osteoarthritis type: primary Qualified Code(s): M17.0 - Bilateral primary osteoarthritis of knee (8) Status post total knee replacement Current Visit: No Status: Acute Qualifiers: Laterality: bilateral Qualified Code(s): Z96.653 - Presence of artificial knee joint, bilateral (9) JADEN on CPAP Current Visit: No Status: Chronic (10) Psoriasis Current Visit: No Status: Chronic (11) Obesity Current Visit: No Status: Chronic Qualifiers: Obesity type: due to excess calories Obesity classification: adult class 3 (BMI >= 40) Serious obesity comorbidity presence: with serious comorbidity Body mass index: BMI 50.0-59.9 Qualified Code(s): E66.01 - Morbid (severe) obesity due to excess calories; Z68.43 - Body mass index (BMI) 50-59.9 , adult; Z68.43 - Body mass index (BMI) 50-59.9 , adult; Z68.43 - Body mass index (BMI) 50-59.9 , adult; Z68.43 - Body mass index (BMI) 50-59.9 , adult (12) Acute blood loss anemia Current Visit: Yes Status: Acute Subjective Interval history: Patient was seen this morning doing well without complaints. Afebrile vital signs stable. Operative extremity: Neurovascularly intact Dressing clean dry and intact Calves nontender Assessment and plan: Continue with postoperative care Hemoglobin 9.9 Objective Vital signs: Vital Signs Temp Pulse Resp BP Pulse Ox 04/12/17 03:15 98.2 F 98 122/77 98 04/12/17 00:58 98.4 F 98 18 103/69 98 04/12/17 00:43 98.3 F 102 18 96/65 97 04/11/17 23:51 99.5 F 93 18 116/75 97 04/11/17 18:29 98.6 F 95 16 147/82 93 04/11/17 16:07 98.2 F 101 16 168/98 96 04/11/17 14:48 98.3 F 99 20 111/64 97 04/11/17 13:33 98.9 F 98 16 107/60 94 04/11/17 13:18 98.1 F 96 16 115/68 96 04/11/17 11:22 97.6 F 101 18 137/85 95 Intake and Output 04/11/17 04/12/17 04/12/17 23:59 07:59 15:59 Intake Total 534 / 534 300 / 300 Output Total 3800 / 3800 2049 Balance -3266 / -3266 -1750 / -1750 Intake: IV Fluids 25 / 25 0.9 % Sodium Chloride 250 ML @ 25 / 25 25 mls/hr IVC .Q10H [facility] Rx#: [id number] Oral 240 / 240 Blood Product 269 / 269 300 / 300 Rbcs Leuko Poor As-1 Unit 269 / 269 [id number] Rbcs Leuko Poor As-1 Unit 300 / 300 [id number] Output: Urine 1200 / 1200 Urethral (Larson) 800 / 800 Catheter 2600 / 2600 2049 Other: Meal Dinner Percent of Meal Consumed 80% Blood Glucose* 147 143 - Labs CBC & BMP: 04/12/17 05:02 04/12/17 05:02 Labs: Abnormal lab results Hgb 9.9 g/dL (11.5-15.4) L 04/12/17 05:02 Hct 29.9 % (35.3-44.9) L 04/12/17 05:02 Sodium 135 mEq/L (136-145) L 04/12/17 05:02 Potassium 3.0 mEq/L (3.5-4.5) L 04/12/17 05:02 Chloride 97 mEq/L (98-109) L 04/12/17 05:02 Carbon Dioxide 31 mEq/L (19-29) H 04/12/17 05:02 Glucose 122 mg/dL (70-99) H 04/12/17 05:02 POC Glucose 147 (58-89) H 04/11/17 21:32 Calcium 8.4 mg/dL (8.6-10.8) L 04/12/17 05:02 - VTE Documentation of Mechanical Device: Venous foot pump, device Consult Discharge Plan - Plan Referrals: Kristin Fung PAC [Physician Airline Captain] - 04/21/17 9:30 am Porter Potts MD [Partnered Physician] - 05/10/17 5:20 pm Elijah Hernandez MD [Primary Care Provider] - 04/28/17 10:45 am Dave Russo MD [Partnered Physician] - 06/16/17 1:00 pm
[2017-04-12] MEDS: Fluticasone Propionate Nasal 50 MCG/SPRAY BOTTLE NS SCH (08:39)
[2017-04-12] MEDS: predniSONE 10 MG TABLET PO SCH (08:40)
[2017-04-12] MEDS: Furosemide 20 MG TABLET PO SCH (08:41)
[2017-04-12] MEDS: *HR* Metformin 500 MG TABLET PO SCH ×2 (08:41→16:40)
[2017-04-12] MEDS: Multivit/Ca/Min/Fe/FA 1 TAB TABLET PO SCH (08:41)
[2017-04-12] MEDS: Aspirin Enteric Coated 81 MG Tablet PO SCH (08:41)
[2017-04-12] MEDS: Folic Acid 1 MG TABLET PO SCH (08:41)
[2017-04-12] MEDS: Cholecalciferol (D-3) 1,000 UNIT TABLET PO SCH (08:41)
[2017-04-12] MEDS: BuPROPion XL (24 HR) 150 MG TABLET PO SCH (08:41)
[2017-04-12] MEDS: hydroCHLOROthiazide 25 MG TABLET PO SCH (08:42)
[2017-04-12] MEDS: Spironolactone 25 MG TABLET PO SCH (08:42)
[2017-04-12] MEDS: Ascorbic Acid 500 MG TABLET PO SCH (09:05)
[2017-04-12] MEDS: Insulin LISPRO 300 UNITS/3 ML VIAL SQ SCH ×4 (09:07→22:11)
[2017-04-12] MEDS: DHA PO SCH (09:08)
[2017-04-12] MEDS: OMEGA PO SCH (09:08)
[2017-04-12] MEDS: [UNRECOGNIZED DRUG - OTHER] PO SCH (09:08)
[2017-04-12] MEDS: FISH OIL PO SCH (09:08)
[2017-04-12] MEDS: EPA PO SCH (09:08)
[2017-04-12] MEDS: [UNRECOGNIZED DRUG - OTHER] SQ SCH (09:08)
[2017-04-12] MEDS: LIRAGLUTIDE 1.8 MG SQ SCH (09:08)
[2017-04-12] MEDS: *HR* Promethazine 25 MG/ML VIAL IVP PRN (11:17)
--- NOTE | 2017-04-12 12:28 | Event Note ---
Date of Encounter: 04/12/17 Time of Encounter: 12:30 POD#2 Bilateral TKR - Robotic 04/10 Labs: H/H drop - 2 units given 04/11 H/H improved 04/12 Patient seen at bedside. Pain control: adequate - patient sitting in chair for prolonged period of time - encouraged elevation legs after sitting to aid in swelling reduction. Lidocaine patches rx'd to try. Participating in PT. All questions and concerns addressed. Educated on use of incentive spirometer, ambulation, and hydration. Patient educated on post-operative restrictions and care. Addressed: 04/11 - Bladder scan performed, straight cathed, will continue to monitor, repeat bladder scan this afternoon if unable to void on her own. 04/12 - patient placed on Larson late on 04/11 - patient requesting to keep Larson - educated patient re: risk infection - will D/C early tomorrow morning and monitor until d/c to [facility]. *Patient relates h/o recto and cystocele which has compromised bladder flow - patient worried about potential for infection - discussed as previously mentioned. D/C plan: [facility] tomorrow per patient request, continuity placed 04/11
[2017-04-12] MEDS: Psyllium 1 PACKET POWD.PACK PO SCH (13:50)
[2017-04-12] MEDS: Acetaminophen 325 MG TABLET PO PRN (16:43)
[2017-04-12] MEDS: Latanoprost 2.5 ML BOTTLE BOTH EYES SCH (21:17)
[2017-04-13] MEDS: *HR* OxyCODONE Immed Rel 5 MG TABLET PO PRN ×2 (02:07→07:27)
[2017-04-13] MEDS: *HR* HYDROmorphone (PF) 1 MG/ML SYRINGE IVP PRN ×2 (06:04→10:15)
[2017-04-13] MEDS: *HR* Enoxaparin 30 MG/0.3 ML SYRINGE SQ SCH (06:04)
[2017-04-13 06:16] VITALS: BP 121/75
[2017-04-13] MEDS: Acetaminophen 325 MG TABLET PO PRN (06:17)
--- NOTE | 2017-04-13 08:08 | Orthopedics Progress Note ---
Date of Encounter: 04/13/17 Time of Encounter: 08:07 - Assessment and Plan (1) Pelvic prolapse Current Visit: No Status: Chronic Qualifiers: Prolapse type: cystocele Cystocele location: midline Qualified Code(s): N81.11 - Cystocele, midline (2) Diverticulitis Current Visit: No Status: Chronic Qualifiers: Diverticulitis site: large intestine Diverticulitis bleeding: without bleeding Diverticulitis complication: without perforation or abscess Qualified Code(s): K57.32 - Diverticulitis of large intestine without perforation or abscess without bleeding (3) Psoriasis Current Visit: No Status: Chronic (4) Hypertension Current Visit: No Status: Chronic Qualifiers: Hypertension type: unspecified Qualified Code(s): I10 - Essential (primary ) hypertension (5) Diabetes mellitus Current Visit: No Status: Chronic Qualifiers: Diabetes mellitus type: type 2 Diabetes mellitus complication status: without complication Diabetes mellitus manager long term care insulin use: unspecified manager long term care insulin use status Qualified Code(s): E11.9 - Type 2 diabetes mellitus without complications (6) DVT prophylaxis Current Visit: No Status: Chronic (7) Degenerative arthritis of knee, bilateral Current Visit: No Status: Chronic Qualifiers: Osteoarthritis type: primary Qualified Code(s): M17.0 - Bilateral primary osteoarthritis of knee (8) Status post total knee replacement Current Visit: No Status: Acute Qualifiers: Laterality: bilateral Qualified Code(s): Z96.653 - Presence of artificial knee joint, bilateral (9) JADEN on CPAP Current Visit: No Status: Chronic (10) Psoriasis Current Visit: No Status: Chronic (11) Obesity Current Visit: No Status: Chronic Qualifiers: Obesity type: due to excess calories Obesity classification: adult class 3 (BMI >= 40) Serious obesity comorbidity presence: with serious comorbidity Body mass index: BMI 50.0-59.9 Qualified Code(s): E66.01 - Morbid (severe) obesity due to excess calories; Z68.43 - Body mass index (BMI) 50-59.9 , adult; Z68.43 - Body mass index (BMI) 50-59.9 , adult; Z68.43 - Body mass index (BMI) 50-59.9 , adult; Z68.43 - Body mass index (BMI) 50-59.9 , adult (12) Acute blood loss anemia Current Visit: Yes Status: Acute Subjective Interval history: Patient was seen this morning doing well without complaints. Afebrile vital signs stable. Operative extremity: Neurovascularly intact Dressing clean dry and intact Calves nontender Assessment and plan: Continue with postoperative care discharge today Objective Vital signs: Vital Signs Temp Pulse Resp BP Pulse Ox 04/13/17 06:14 98.3 F 96 18 121/75 95 04/12/17 22:44 98.2 F 103 16 105/67 93 04/12/17 21:15 111 134/80 04/12/17 20:05 98.8 F 100 18 99/63 94 04/12/17 14:47 98.6 F 105 19 122/80 93 Intake and Output 04/12/17 04/13/17 04/13/17 23:59 07:59 15:59 Output Total 1375 / 1375 550 / 550 Balance -1375 / -1375 -550 / -550 Output: Catheter 1375 / 1375 550 / 550 Other: Blood Glucose* 153 120 - Labs CBC & BMP: 04/12/17 05:02 04/12/17 05:02 Labs: Abnormal lab results Hgb 9.9 g/dL (11.5-15.4) L 04/12/17 05:02 Hct 29.9 % (35.3-44.9) L 04/12/17 05:02 Sodium 135 mEq/L (136-145) L 04/12/17 05:02 Potassium 3.0 mEq/L (3.5-4.5) L 04/12/17 05:02 Chloride 97 mEq/L (98-109) L 04/12/17 05:02 Carbon Dioxide 31 mEq/L (19-29) H 04/12/17 05:02 Glucose 122 mg/dL (70-99) H 04/12/17 05:02 POC Glucose 120 (58-89) H 04/13/17 07:49 Calcium 8.4 mg/dL (8.6-10.8) L 04/12/17 05:02 - VTE Documentation of Mechanical Device: Venous foot pump, device Consult Discharge Plan - Plan Referrals: Kristin Fung, PAC [Physician Slab Inspector] - 04/21/17 9:30 am Porter Potts MD [Partnered Physician] - 05/10/17 5:20 pm Elijah Hernandez MD [Primary Care Provider] - 04/28/17 10:45 am Dave Russo MD [Partnered Physician] - 06/16/17 1:00 pm
[2017-04-13] MEDS: Cholecalciferol (D-3) 1,000 UNIT TABLET PO SCH (08:40)
[2017-04-13] MEDS: *HR* Metformin 500 MG TABLET PO SCH (08:41)
[2017-04-13] MEDS: Multivit/Ca/Min/Fe/FA 1 TAB TABLET PO SCH (08:41)
[2017-04-13] MEDS: predniSONE 10 MG TABLET PO SCH (08:42)
[2017-04-13] MEDS: Ascorbic Acid 500 MG TABLET PO SCH (08:42)
[2017-04-13] MEDS: BuPROPion XL (24 HR) 150 MG TABLET PO SCH (08:43)
[2017-04-13] MEDS: hydroCHLOROthiazide 25 MG TABLET PO SCH (08:43)
[2017-04-13] MEDS: Spironolactone 25 MG TABLET PO SCH (08:43)
[2017-04-13] MEDS: Folic Acid 1 MG TABLET PO SCH (08:43)
[2017-04-13] MEDS: Aspirin Enteric Coated 81 MG Tablet PO SCH (08:43)
[2017-04-13] MEDS: Fluticasone Propionate Nasal 50 MCG/SPRAY BOTTLE NS SCH (08:43)
[2017-04-13] MEDS: Furosemide 20 MG TABLET PO SCH (08:44)
[2017-04-13] MEDS: Psyllium 1 PACKET POWD.PACK PO SCH (08:44)
[2017-04-13] MEDS: Insulin LISPRO 300 UNITS/3 ML VIAL SQ SCH (08:54)
[2017-04-13] MEDS ORDERED: [UNRECOGNIZED DRUG - OTHER] SQ SCH (09:00)
[2017-04-13] MEDS ORDERED: ETANERCEPT 50 MG SQ SCH (09:00)
[2017-04-13] MEDS: *HR* Promethazine 25 MG/ML VIAL IVP PRN (10:14)
[2017-04-16] MEDS ORDERED: *HR* Methotrexate 2.5 MG TABLET PO SCH (09:00)
== END 2017-04-13 11:17 | disposition other institution (70) | DRG 462 ==
LOC: SAMDAY 07:06 → 3NENU 13:15
PROVIDERS: ADMIT Orthopaedic Surgery; ATTEND Orthopaedic Surgery

== ENCOUNTER 2020-07-05 23:53 | Inpatient (IN) ==
[2020-07-06] MEDS ORDERED: Naloxone 0.4 MG/ML INJ IVP PRN ×2 (02:39→03:10)
[2020-07-06] MEDS ORDERED: 0.9 % Sodium Chloride 1,000 ML IVC ONE (03:09)
[2020-07-06] MEDS ORDERED: Ondansetron 4 MG/2 ML VIAL IVP PRN (03:10)
[2020-07-06] MEDS ORDERED: Ketorolac 15 MG/ML VIAL IVP PRN (03:10)
[2020-07-06 03:29] LABS: Basophils % 0.3 %; Eosinophils # 0.1 K/mcL (0.0-0.6); Eosinophils % 0.7 %; Hematocrit 34.8 % (35.3-44.9); Hemoglobin 11.7 g/dL (11.5-15.4); Immature Granulocytes % 0.4 % (0-4); Lymphocytes # 4.2 K/mcL (0.6-4.6); Lymphocytes % 35.5 %; Mean Corpuscular HGB Conc 33.6 g/dL (31.6-35.5); Mean Corpuscular Hemoglobin 33.8 pg (28.0-33.3); Mean Corpuscular Volume 100.6 fL (83.0-100.0); Mean Platelet Volume 10.8 fL (9.4-12.4); Monocytes # 1.4 K/mcL (0.0-1.3); Monocytes % 11.7 %; Neutrophils # 6.1 K/mcL (1.6-8.9); Platelet Count 168 K/mcL (140-400); Red Blood Count 3.46 M/mcL (3.82-4.97); Red Cell Distribution Width 14.4 % (11.5-14.5); Segmented Neutrophils % 51.4 %; White Blood Count 11.9 K/mcL (4.3-11.1)
[2020-07-06 03:47] LABS: Alanine Aminotransferase 39 Units/L (7-52); Albumin 3.3 g/dL (3.5-5.7); Albumin/Globulin Ratio 0.9 (1.1-2.2); Alkaline Phosphatase 50 Units/L (34-104); Aspartate Amino Transferase 26 Units/L (13-39); BUN/Creatinine Ratio 29 (6-26); Bilirubin,Total 0.1 mg/dL (0.3-1.0); Blood Urea Nitrogen 28 mg/dL (8-23); Carbon Dioxide 27 mEq/L (23-29); Chloride 99 mEq/L (98-107); Globulin 3.6 g/dL (2.4-3.5); Glucose 118 mg/dL (70-105); Osmolality,Calculated 285 (280-300); Sodium 134 mEq/L (136-145); Total Protein 6.9 g/dL (6.4-8.9); eGFR For African Americans > 60 (> 60); eGFR For Non-African Americans 59 (> 60)
[2020-07-06] MEDS: cefTRIAXone 2,000 MG in Water for inj. (sterile) 20 ML IVP SCH (04:03)
[2020-07-06] MEDS ORDERED: *HR* Dextrose 50 % in Water (Vial) 50 ML VIAL IVP PRN (04:10)
[2020-07-06] MEDS ORDERED: Dextrose Gel 15 GM/37.5 ML TUBE PO PRN ×2 (04:10)
[2020-07-06] MEDS ORDERED: D5% in Water 1,000 ML IVC PRN (04:10)
[2020-07-06] MEDS: 0.9 % Sodium Chloride 1,000 ML IVC SCH ×3 (07:43→21:57)
[2020-07-06] MEDS ORDERED: *HR* HYDROmorphone (PF) 1 MG/ML SYRINGE IVP ONE ×2 (07:59→21:34)
[2020-07-06] MEDS: Insulin LISPRO 300 UNITS/3 ML VIAL SUBQ SCH ×3 (08:01→16:40)
[2020-07-06] MEDS: Ondansetron 4 MG/2 ML VIAL IVP PRN ×4 (08:13→23:48)
[2020-07-06] MEDS: predniSONE 5 MG TABLET PO SCH (08:25)
[2020-07-06] MEDS: Aspirin Enteric Coated 81 MG Tablet PO SCH (08:25)
[2020-07-06] MEDS: BuPROPion XL (24 HR) 150 MG TABLET PO SCH (08:25)
[2020-07-06] MEDS ORDERED: *HR* OxyCODONE Immed Rel 5 MG TABLET PO PRN (10:14)
[2020-07-06] MEDS: Folic Acid 1 MG TABLET PO SCH ×3 (11:46→19:49)
[2020-07-06] MEDS: Fluticasone Propionate Nasal 50 MCG/SPRAY BOTTLE NS SCH (11:47)
[2020-07-06] MEDS ORDERED: Isovue-370 500 ML BOTTLE IVP ONE (21:51)
[2020-07-06] MEDS ORDERED: *HR* Heparin 5,000 UNIT/ML VIAL IVP PRN (23:09)
[2020-07-06] MEDS ORDERED: *HR* Heparin 5,000 UNIT/ML VIAL IVP ONE (23:09)
[2020-07-06] MEDS: Heparin 25,000UNIT/250ML 1/2NS 25,000 UNIT/250 ML IV.SOLN IVC SCH (23:49)
[2020-07-06] MEDS: Acetaminophen 325 MG TABLET PO PRN (23:49)
[2020-07-07 01:31] LABS: Basophils % 0.2 %; Eosinophils # 0.2 K/mcL (0.0-0.6); Eosinophils % 1.4 %; Hematocrit 33.9 % (35.3-44.9); Hemoglobin 10.9 g/dL (11.5-15.4); Immature Granulocytes % 0.4 % (0-4); Lymphocytes # 3.9 K/mcL (0.6-4.6); Lymphocytes % 30.7 %; Mean Corpuscular HGB Conc 32.2 g/dL (31.6-35.5); Mean Corpuscular Hemoglobin 32.5 pg (28.0-33.3); Mean Corpuscular Volume 101.2 fL (83.0-100.0); Monocytes # 1.2 K/mcL (0.0-1.3); Monocytes % 9.8 %; Neutrophils # 7.2 K/mcL (1.6-8.9); Platelet Count 181 K/mcL (140-400); Red Blood Count 3.35 M/mcL (3.82-4.97); Red Cell Distribution Width 14.4 % (11.5-14.5); Segmented Neutrophils % 57.5 %; White Blood Count 12.6 K/mcL (4.3-11.1)
[2020-07-07 01:32] LABS: INR 1.2; Prothrombin Time 13.3 Seconds (9.4-12.1)
[2020-07-07 01:40] LABS: Heparin anti-factor XA UFH 1.33 IU/mL (0.30-0.70)
[2020-07-07 01:52] LABS: BUN/Creatinine Ratio 19 (6-26); Blood Urea Nitrogen 16 mg/dL (8-23); Calcium 8.5 mg/dL (8.6-10.3); Carbon Dioxide 23 mEq/L (23-29); Chloride 102 mEq/L (98-107); Glucose 105 mg/dL (70-105); Magnesium 1.4 mg/dL (1.6-2.6); Osmolality,Calculated 282 (280-300); Phosphorous 3.6 mg/dL (2.7-4.5); Potassium 3.4 mEq/L (3.5-5.1); Sodium 135 mEq/L (136-145); eGFR For African Americans > 60 (> 60); eGFR For Non-African Americans > 60 (> 60)
[2020-07-07] MEDS: cefTRIAXone 2,000 MG in Water for inj. (sterile) 20 ML IVP SCH (04:35)
[2020-07-07] MEDS: Ondansetron 4 MG/2 ML VIAL IVP PRN (04:36)
[2020-07-07] MEDS: Folic Acid 1 MG TABLET PO SCH ×4 (08:25→20:55)
[2020-07-07] MEDS: Aspirin Enteric Coated 81 MG Tablet PO SCH (08:25)
[2020-07-07] MEDS: Spironolactone 25 MG TABLET PO SCH (08:25)
[2020-07-07] MEDS: predniSONE 5 MG TABLET PO SCH (08:26)
[2020-07-07] MEDS: hydroCHLOROthiazide 25 MG TABLET PO SCH (08:26)
[2020-07-07] MEDS: BuPROPion XL (24 HR) 150 MG TABLET PO SCH (08:26)
[2020-07-07] MEDS: Insulin LISPRO 300 UNITS/3 ML VIAL SUBQ SCH ×3 (08:29→17:04)
[2020-07-07] MEDS ORDERED: NON-FORMULARY MEDICATION 1 EACH EACH (Spironolact/Hydrochlorothiazid [Aldactazide 25-25 Ta PO SCH (09:00)
[2020-07-07] MEDS ORDERED: Furosemide 20 MG/2 ML VIAL IVP ONE (10:21)
[2020-07-07] MEDS: Fluticasone Propionate Nasal 50 MCG/SPRAY BOTTLE NS SCH (10:56)
[2020-07-07] MEDS: Furosemide 20 MG TABLET PO SCH (10:58)
[2020-07-07] MEDS: Acetaminophen 325 MG TABLET PO PRN (11:03)
[2020-07-07] MEDS: *HR* HYDROcodone/Acet 10/325 mg TABLET PO PRN ×2 (11:03→20:55)
[2020-07-07] MEDS ORDERED: Acetaminophen 325 MG TABLET PO PRN (13:24)
[2020-07-07] MEDS ORDERED: polyethylene glycoL 3350 17 GM POWD.PACK PO PRN (14:37)
[2020-07-07] MEDS: *HR* HYDROcodone/Acet 7.5/325 mg TABLET PO PRN (15:41)
[2020-07-07] MEDS: Azithromycin 500 MG in 0.9 % Sodium Chloride 250 ML IVPB SCH (15:42)
[2020-07-07] MEDS: Heparin 25,000UNIT/250ML 1/2NS 25,000 UNIT/250 ML IV.SOLN IVC SCH (17:05)
[2020-07-07] MEDS ORDERED: Perflutren Lipid Microsphere 1.3 ML in 0.9 % Sodium Chloride 8.7 ML IVP PRN (17:31)
[2020-07-07] MEDS: Sennosides/Docusate Sodium TABLET PO SCH (20:57)
[2020-07-07] MEDS: *HR* Heparin 5,000 UNIT/ML VIAL IVP PRN (21:19)
[2020-07-08] MEDS: *HR* HYDROcodone/Acet 10/325 mg TABLET PO PRN ×3 (00:28→14:21)
[2020-07-08] MEDS: cefTRIAXone 2,000 MG in Water for inj. (sterile) 20 ML IVP SCH (03:15)
[2020-07-08 03:44] LABS: Basophils % 0.3 %; Eosinophils # 0.1 K/mcL (0.0-0.6); Eosinophils % 1.4 %; Hematocrit 31.4 % (35.3-44.9); Hemoglobin 10.4 g/dL (11.5-15.4); Immature Granulocytes % 0.3 % (0-4); Lymphocytes % 39.2 %; Mean Corpuscular HGB Conc 33.1 g/dL (31.6-35.5); Mean Corpuscular Hemoglobin 32.8 pg (28.0-33.3); Mean Corpuscular Volume 99.1 fL (83.0-100.0); Mean Platelet Volume 10.6 fL (9.4-12.4); Monocytes # 0.9 K/mcL (0.0-1.3); Monocytes % 8.9 %; Neutrophils # 5.1 K/mcL (1.6-8.9); Platelet Count 200 K/mcL (140-400); Red Blood Count 3.17 M/mcL (3.82-4.97); Segmented Neutrophils % 49.9 %; White Blood Count 10.2 K/mcL (4.3-11.1)
[2020-07-08 04:04] LABS: BUN/Creatinine Ratio 17 (6-26); Blood Urea Nitrogen 14 mg/dL (8-23); Calcium 8.5 mg/dL (8.6-10.3); Carbon Dioxide 27 mEq/L (23-29); Chloride 100 mEq/L (98-107); Glucose 128 mg/dL (70-105); Magnesium 1.9 mg/dL (1.6-2.6); Osmolality,Calculated 284 (280-300); Phosphorous 3.4 mg/dL (2.7-4.5); Potassium 3.5 mEq/L (3.5-5.1); Sodium 136 mEq/L (136-145); eGFR For African Americans > 60 (> 60); eGFR For Non-African Americans > 60 (> 60)
[2020-07-08] MEDS: *HR* Heparin 5,000 UNIT/ML VIAL IVP PRN (04:53)
[2020-07-08] MEDS: Heparin 25,000UNIT/250ML 1/2NS 25,000 UNIT/250 ML IV.SOLN IVC SCH (07:14)
[2020-07-08] MEDS: 0.9 % Sodium Chloride 1,000 ML IVC SCH (07:15)
[2020-07-08] MEDS: Insulin LISPRO 300 UNITS/3 ML VIAL SUBQ SCH ×3 (07:26→17:23)
[2020-07-08] MEDS: Aspirin Enteric Coated 81 MG Tablet PO SCH (09:21)
[2020-07-08] MEDS: Furosemide 20 MG TABLET PO SCH (09:21)
[2020-07-08] MEDS: Spironolactone 25 MG TABLET PO SCH (09:21)
[2020-07-08] MEDS: Folic Acid 1 MG TABLET PO SCH ×4 (09:21→19:51)
[2020-07-08] MEDS: hydroCHLOROthiazide 25 MG TABLET PO SCH (09:21)
[2020-07-08] MEDS: BuPROPion XL (24 HR) 150 MG TABLET PO SCH (09:21)
[2020-07-08] MEDS: Sennosides/Docusate Sodium TABLET PO SCH ×2 (09:21→19:51)
[2020-07-08] MEDS: predniSONE 5 MG TABLET PO SCH (09:22)
[2020-07-08] MEDS: Fluticasone Propionate Nasal 50 MCG/SPRAY BOTTLE NS SCH (09:24)
[2020-07-08] MEDS: *HR* HYDROcodone/Acet 7.5/325 mg TABLET PO PRN (09:27)
[2020-07-08] MEDS: Apixaban 5 MG TABLET PO SCH ×2 (12:04→19:51)
[2020-07-08] MEDS: Azithromycin 500 MG in 0.9 % Sodium Chloride 250 ML IVPB SCH (14:15)
[2020-07-08] MEDS: levoFLOXacin 750 MG TABLET PO SCH (14:15)
[2020-07-09] MEDS: Insulin LISPRO 300 UNITS/3 ML VIAL SUBQ SCH (08:48)
[2020-07-09] MEDS: BuPROPion XL (24 HR) 150 MG TABLET PO SCH (09:00)
[2020-07-09] MEDS: Aspirin Enteric Coated 81 MG Tablet PO SCH (09:00)
[2020-07-09] MEDS: Sennosides/Docusate Sodium TABLET PO SCH (09:00)
[2020-07-09] MEDS: Apixaban 5 MG TABLET PO SCH (09:00)
[2020-07-09] MEDS: Spironolactone 25 MG TABLET PO SCH (09:00)
[2020-07-09] MEDS: hydroCHLOROthiazide 25 MG TABLET PO SCH (09:00)
[2020-07-09] MEDS: levoFLOXacin 750 MG TABLET PO SCH (09:00)
[2020-07-09] MEDS: Furosemide 20 MG TABLET PO SCH (09:01)
[2020-07-09] MEDS: Folic Acid 1 MG TABLET PO SCH (09:01)
[2020-07-09] MEDS: predniSONE 5 MG TABLET PO SCH (09:01)
[2020-07-09] MEDS: Fluticasone Propionate Nasal 50 MCG/SPRAY BOTTLE NS SCH (09:01)
[2020-07-09 10:39] VITALS: BP 107/75
[2020-07-10 07:58] LABS: Immunoglobulin A 167 mg/dL (68-408); Immunoglobulin G 1630 mg/dL (768-1632); Immunoglobulin M 54 mg/dL (35-263)
[2020-07-12 02:11] LABS: APTT (LE Anticoag) 46 sec (32-48); Diluted Russell Viper Venom 39 sec (33-44)
== END 2020-07-09 12:36 | disposition home or self-care (01) | DRG 871 ==
LOC: 3BNU → SUATTDRO 07-06 01:38
PROVIDERS: ADMIT Internal Medicine; ATTEND Internal Medicine